=== PATIENT | female | born 1980 | race Caucasian/White ===

== ENCOUNTER → 2019-11-25 09:06 | Outpatient (CLI) | payer BC, SELFPAY ==
[2019-11-25 10:08] LABS: Hematocrit 41.8 % (36-46); Mean Corpuscular HGB Conc 33.5 % (30-36); Mean Corpuscular Hemoglobin 29.2 PG (26-34); Platelet Count 320 X10^3/uL (150-400); Red Blood Cell Count 4.81 X10^6/uL (4.0-5.2)
[2019-11-25 10:17] LABS: Alanine Aminotransferase 17 IU/L (<35); Albumin 4.7 g/dL (3.5-5.0); Albumin Globulin Ratio 1.5 (1.0-2.8); Alkaline Phosphatase 39 U/L (38-126); Aspartate Aminotransferase 19 IU/L (14-36); BUN Creatinine Ratio 21.3 (6-22); Bilirubin Total 0.4 mg/dL (0.2-1.3); Blood Urea Nitrogen 17 mg/dL (7-17); Calcium 9.5 mg/dL (8.4-10.2); Carbon Dioxide 27 mmol/L (22-32); Chloride 102 mmol/L (98-107); Cholesterol 157 mg/dL (140-199); Estimated Glomerular Filt Rate > 60.0 mL/min (>60); Globulin 3.1 g/dL (1.7-4.1); Glucose 98 mg/dL (70-100); HDL Cholesterol 43 mg/dL (40-60); HEMOLYSIS < 15 (0-50); LDL Cholesterol Calculated 87 mg/dL (<100); Potassium 4.4 mmol/L (3.4-5.1); Sodium 140 mmol/L (137-145); Total Protein 7.8 g/dL (6.3-8.2); Triglycerides 134 mg/dL (35-150)
== END ==
PROVIDERS: PCP Nurse Practitioner Family; Referring Provider Nurse Practitioner Family; Visit Provider Nurse Practitioner Family
DX: Z00.00 Encounter for general adult medical examination without abnormal findings (principal); Z13.6 Encounter for screening for cardiovascular disorders
CPT/HCPCS: 36415; 80053; 80061; 85027

== ENCOUNTER → 2020-09-14 09:46 | Outpatient (CLI) | payer BC, SELFPAY ==
--- NOTE | 2020-09-14 09:51 | DI.RAD.S_ITS ---
PROCEDURE: XR HAND RT MIN 3V INDICATIONS: joint pain, back pain TECHNIQUE: 3 views of the hand(s) acquired. COMPARISON: None. FINDINGS: Bones: No fractures or dislocations. Carpal bones are normally aligned. No suspicious bony lesions. Soft tissues: No suspicious soft tissue calcifications. IMPRESSION: Negative examination. Dictated by: Moreno Landin M.D. on 09/14/2020 at 10:25 Approved by: Moreno Landin M.D. on 09/14/2020 at 10:27
--- NOTE | 2020-09-14 09:51 | DI.RAD.S_ITS ---
PROCEDURE: XR HAND LT MIN 3V INDICATIONS: joint pain, back pain TECHNIQUE: 3 views of the hand(s) acquired. COMPARISON: None. FINDINGS: Bones: No fractures or dislocations. Carpal bones are normally aligned. No suspicious bony lesions. Soft tissues: No suspicious soft tissue calcifications. IMPRESSION: Negative examination. Dictated by: Moreno Landin M.D. on 09/14/2020 at 10:27 Approved by: Moreno Landin M.D. on 09/14/2020 at 10:29
--- NOTE | 2020-09-14 09:51 | DI.RAD.S_ITS ---
PROCEDURE: XR LUMBAR SPINE 2-3V INDICATIONS: joint pain, back pain TECHNIQUE: 3 views of the lumbar spine were acquired. COMPARISON: None. FINDINGS: Bones: No fracture. Multilevel degenerative endplate sclerosis and spurring. Diffuse facet arthropathy. Trace retrolisthesis of L2 on L3. Moderate narrowing of the L4-L5 and L5-S1 disc spaces. Mild narrowing of the L3-L4 disc space. Mild dextrocurvature centered at L2-L3. Soft tissues: Overlying bowel gas pattern is normal. No suspicious soft tissue calcifications. IMPRESSION: Mild dextrocurvature Multilevel spondylosis and facet arthropathy as above. Dictated by: Moreno Landin M.D. on 09/14/2020 at 11:02 Approved by: Moreno Landin M.D. on 09/14/2020 at 11:03
[2020-09-14 11:07] LABS: Add Manual Diff / Slide Review NO; Basophils Absolute Auto 0 /uL (0-100); Basophils Percent Auto 0.8 % (0-2); Eosinophils Absolute Auto 100 /uL (0-450); Eosinophils Percent Auto 1.5 % (2-4); Hematocrit 40.2 % (36-46); Hemoglobin 13.3 g/dL (12.0-16.0); Lymphocytes Absolute Auto 1900 /uL (1100-4500); Lymphocytes Percent Auto 34.4 % (25-40); Mean Corpuscular HGB Conc 33.2 % (30-36); Mean Corpuscular Hemoglobin 29.2 PG (26-34); Mean Corpuscular Volume 88.1 fL (80-100); Monocytes Absolute Auto 400 /uL (0-900); Monocytes Percent Auto 7.5 % (3-14); Neutrophils Absolute Auto 3100 /uL (1500-7000); Neutrophils Percent Auto 55.8 % (50-75); Platelet Count 328 X10^3/uL (150-400); Red Blood Cell Count 4.56 X10^6/uL (4.0-5.2); Red Cell Distribution Width 12.8 % (11.6-14.8); White Blood Cell Count 5.5 X10^3/uL (4.5-11.0)
[2020-09-14 11:10] LABS: Alanine Aminotransferase 15 IU/L (<35); Albumin 4.4 g/dL (3.5-5.0); Albumin Globulin Ratio 1.6 (1.0-2.8); Alkaline Phosphatase 39 U/L (38-126); Aspartate Aminotransferase 18 IU/L (14-36); Bilirubin Total 0.4 mg/dL (0.2-1.3); Blood Urea Nitrogen 15 mg/dL (7-17); Calcium 9.1 mg/dL (8.4-10.2); Carbon Dioxide 30 mmol/L (22-32); Chloride 104 mmol/L (98-107); Estimated Glomerular Filt Rate > 60.0 mL/min (>60); Globulin 2.8 g/dL (1.7-4.1); Glucose 102 mg/dL (70-100); HEMOLYSIS < 15 (0-50); Sodium 137 mmol/L (137-145); Total Protein 7.2 g/dL (6.3-8.2)
[2020-09-14 11:12] LABS: C-Reactive Protein Quant < 0.5 mg/dL (<1.0)
[2020-09-14 11:14] LABS: Rheumatoid Factor < 8.6 IU/mL (<12.0)
[2020-09-14 11:45] LABS: Erythrocyte Sedimentation Rate 3 MM/HR (0-20)
[2020-09-15 18:40] LABS: ANA Screen, IFA Negative (.)
[2020-09-17 21:36] LABS: CCP Antibodies IgG/IgA 5 units (0-19)
== END ==
PROVIDERS: PCP Family Medicine; Referring Provider Family Medicine; Visit Provider Family Medicine
DX: G89.29 Other chronic pain (principal); M25.541 Pain in joints of right hand; M25.542 Pain in joints of left hand; M54.5 Low back pain; Z83.2 Family history of diseases of the blood and blood-forming organs and certain disorders involving the immune mechanism
CPT/HCPCS: 36415; 72100; 73130; 80053; 85025; 85651; 86038; 86140; 86200; 86430

== ENCOUNTER → 2020-09-21 11:33 | Outpatient (CLI) | payer BC, SELFPAY ==
--- NOTE | 2020-09-21 11:36 | DI.RAD.S_ITS ---
PROCEDURE: XR CERVICAL SPINE 2V OR 3V INDICATIONS: neck pain TECHNIQUE: 3 view(s) of the cervical spine were acquired. COMPARISON: None. FINDINGS: Bones: No fracture. Straightening of the normal lordotic curvature. Mild to moderate narrowing of the C5-C6 disc space. Multilevel degenerative endplate sclerosis and spurring. Diffuse facet arthropathy. Soft tissues: No prevertebral soft tissue swelling. IMPRESSION: Straightening of the normal lordotic curvature. Mild to moderate C5-C6 disc degeneration. Dictated by: Moreno Landin M.D. on 09/21/2020 at 13:00 Approved by: Moreno Landin M.D. on 09/21/2020 at 13:02
== END ==
PROVIDERS: PCP Family Medicine; Referring Provider Registered Nurse; Visit Provider Registered Nurse
DX: M50.322 Other cervical disc degeneration at C5-C6 level (principal); M47.812 Spondylosis without myelopathy or radiculopathy, cervical region
CPT/HCPCS: 72040

== ENCOUNTER → 2020-09-22 12:45 | Outpatient (CLI) | payer BC, SELFPAY ==
--- NOTE | 2020-09-22 12:47 | DI.MG.S_ITS ---
BILATERAL DIGITAL DIAGNOSTIC MAMMOGRAM 3D/2D: 09/22/2020 CLINICAL: Baseline exam. Bilateral breast pain. No prior exams were available for comparison. The tissue of both breasts is heterogeneously dense. This may lower the sensitivity of mammography. There is an oval equal density focal asymmetry with an indistinct margin in the right breast at 5 o'clock anterior depth. This correlates as palpated. No other significant masses, calcifications, or other findings are seen in either breast. IMPRESSION: INCOMPLETE: NEEDS ADDITIONAL IMAGING EVALUATION The oval equal density focal asymmetry in the right breast is indeterminate. An ultrasound is recommended. There is no abnormality seen in the right axilla to correspond with the palpable abnormality in the right axilla, however, ultrasound is recommended. This exam was interpreted at Station ID: [id number]. NOTE: For mammograms, a report in lay terms will be sent to the patient. Approximately 15% of breast malignancies will not be visualized mammographically. In the management of a palpable breast mass, a negative mammogram must not discourage biopsy of a clinically suspicious lesion. Electronically Signed By: Micah farias/anton:09/22/2020 14:35:47 ACR BI-RADS Category 0: Incomplete [id number]
--- NOTE | 2020-09-22 12:47 | DI.US.S_ITS ---
LIMITED ULTRASOUND OF RIGHT BREAST AND AXILLA: 09/22/2020 CLINICAL: Palpable right breast lump. Comparison is made to exam dated: 09/22/2020 [facility]. Color flow and real-time ultrasound of the right breast 5-6 o'clock, and axilla regions were performed on the areas of interest. There is a 0.9 cm x 0.6 cm x 0.4 cm oval mass with an indistinct and circumscribed margin in the right breast at 5 o'clock in the retroareolar region 2 cm from the nipple. This oval mass is hypoechoic with a well-defined boundary. This correlates as palpated and with mammography findings. Color flow imaging demonstrates that there is no vascularity present. There also is a 0.4 cm x 0.3 cm x 0.4 cm oval mass with an indistinct and circumscribed margin in the right breast at 9 o'clock middle depth. This oval mass is hypoechoic. This correlates as palpated. Color flow imaging demonstrates that there is no vascularity present. No significant abnormalities were seen sonographically in the right axilla. No enlarged lymph nodes in the right axilla. IMPRESSION: SUSPICIOUS OF MALIGNANCY The 0.9 cm x 0.6 cm x 0.4 cm oval mass in the right breast at 5 o'clock in the retroareolar region is suspicious of malignancy. An ultrasound guided biopsy is recommended. The 0.4 cm x 0.3 cm x 0.4 cm oval mass in the right breast at 9 o'clock middle depth is suspicious of malignancy. An ultrasound guided biopsy is recommended. There is no abnormality seen in the right axilla to correspond with the palpable abnormality in the right axilla, however, clinical followup is recommended. The findings were discussed with and the results were reviewed with the patient at the conclusion of the study by Dr. Anglin. This exam was interpreted at Station ID: [id number]. Electronically Signed By: Micah farias/:09/22/2020 14:44:54 letter sent: Biopsy Required Ultrasound BI-RADS: 4 Suspicious for malignancy
[2020-09-22 14:22] LABS: Free T4, Direct Thyroxine 1.26 ng/dL (0.78-2.19)
[2020-09-22 14:41] LABS: Thyroid Stimulating Hormone 0.497 uIU/mL (0.47-4.68)
== END ==
PROVIDERS: Registered Nurse; PCP Family Medicine; Referring Provider Family Medicine; Visit Provider Family Medicine
DX: R92.8 Other abnormal and inconclusive findings on diagnostic imaging of breast (principal); N63.14 Unspecified lump in the right breast, lower inner quadrant; N63.15 Unspecified lump in the right breast, overlapping quadrants; N64.4 Mastodynia; N60.01 Solitary cyst of right breast; N60.02 Solitary cyst of left breast; R20.0 Anesthesia of skin; R20.2 Paresthesia of skin
CPT/HCPCS: 36415; 76642; 77066; 84439; 84443; G0279

== ENCOUNTER → 2020-09-25 12:35 | Outpatient (CLI) | payer BC, SELFPAY ==
--- NOTE | 2020-09-25 | DI.MG.S_ITS ---
UNILATERAL RIGHT DIGITAL DIAGNOSTIC MAMMOGRAM POST-EXCISIONAL BIOPSY: 09/25/2020 CLINICAL: Abnormal mammogram. Comparison is made to exam dated: 09/22/2020 [facility]. The tissue of right breast is heterogeneously dense. This may lower the sensitivity of mammography. There is a marker clip in the appropriate position in the right breast at 6 o'clock middle depth. This marker clip placement is at the biopsy site. There also is a marker clip in the appropriate position in the right breast at 9 o'clock middle depth. This marker clip placement is at the biopsy site. IMPRESSION: POST PROCEDURE MAMMOGRAM FOR MARKER PLACEMENT There was a successful marker clip placement in the right breast at 6 o'clock middle depth. There was a successful marker clip placement in the right breast at 9 o'clock middle depth. This exam was interpreted at Station ID: [id number]. NOTE: For mammograms, a report in lay terms will be sent to the patient. Approximately 15% of breast malignancies will not be visualized mammographically. In the management of a palpable breast mass, a negative mammogram must not discourage biopsy of a clinically suspicious lesion. Electronically Signed By: Moreno rodríguez/:09/25/2020 15:48:57 ACR BI-RADS Category Post-procedure mammogram for marker placement
--- NOTE | 2020-09-25 | PATH_ITS ---
[facility] Accession Number: [id number] . 01 Material submitted: . PART A: breast - RIGHT BREAST MASS 5:30 PART B: breast - RIGHT BREAST MASS 9:00 4CMFN . 02 Diagnosis: A. Right Breast, Mass 5:30, Core Needle Biopsies: Fibroepithelial lesion and adenosis. Negative for atypical hyperplasia, in situ, or invasive carcinoma. . B. Right Breast, Mass 9:00 4 CM FN, Core Needle Biopsies: Benign breast tissue and small fragment of lymph node. Negative for atypical hyperplasia, in situ, or invasive carcinoma. [facility] 09/30/2020 1715 Local . 02 Electronically signed: . Malina Stewart MD, Pathologist NPI- [id number] . 01 Gross description: . A. Received in formalin and labeled with R breast mass are four pieces of tesfaye adipose tissue, ranging in size from 1.0 x 0.5 x 0.3 cm to 0.9 x 0.9 x 0.2 cm. All four pieces are entirely submitted in cassette A1. B. Received in formalin and labeled with R breast mass are two pieces of tesfaye adipose and hemorrhagic tissue, measuring 1.2 x 0.3 x 0.3 cm to 1.6 x 0.7 x 0.3 cm. Both pieces are entirely submitted in cassette B1. Collection date and time is listed as 09/25/2020 at 1445 PM for a total fixation time after processing as approximately 2100 hours. ([id number]) /[facility] 09/30/2020 1715 Local . 02 Pathologist provided ICD-10: N63.10 . 02 CPT . 656117, [id number] Performed at: [address] [id number] MD Micah Ferguson MD Phone: [phone] Performed at: 02 [facility] [id number] [place] [id number] MD Malina Stewart MD Phone: [phone]
--- NOTE | 2020-09-25 12:36 | DI.US.S_ITS ---
MULTIPLE ULTRASOUND GUIDED BIOPSIES RIGHT BREAST USING VACUUM DEVICE WITH MARKING DEVICES INSERTED: 09/25/2020 CLINICAL: Two right breast masses 5:30 and 9:00. PATIENT CONSENT: Risks (minor bleeding, infection, vasovagal reaction and repeat procedure), benefits and alternatives were explained to the patient and written informed consent was obtained. Correlation is made to exams dated: [facility]2020 [facility] An [facility] guided biopsy using real-time ultrasound was performed for the mass located in the right breast at 6 o'clock posterior depth. The skin was prepped in the usual manner. Local anesthetic was administered to the access site. A small incision was made in the breast. The abnormality was approached from the lateral aspect. A biopsy needle was placed adjacent to the abnormality under ultrasound guidance. Once the needle was documented to be in the correct location, four specimens were obtained using the Mammotome biopsy system. The patient received additional local anesthetic during the procedure. A clip was inserted into the biopsy cavity. The specimens were sent to the laboratory for pathological analysis. A second ultrasound guided biopsy using real-time ultrasound was performed for the mass located in the right breast at 9 o'clock posterior depth. The skin was prepped in the usual manner. Local anesthetic was administered to the access site. A small incision was made in the breast. The abnormality was approached from the lateral aspect. A biopsy needle was placed adjacent to the abnormality under ultrasound guidance. Once the needle was documented to be in the correct location, three specimens were obtained using the Mammotome biopsy system. The patient received additional local anesthetic during the procedure. A clip was inserted into the biopsy cavity. The specimens were sent to the laboratory for pathological analysis. IMPRESSION: ULTRASOUND GUIDED BIOPSY BENIGN Ultrasound guided biopsy of the mass in the right breast at 6 o'clock posterior depth was successful. Pathology indicates benign lymph node (LN). Pathology results are concordant with imaging findings. Ultrasound guided biopsy of the mass in the right breast at 9 o'clock posterior depth was successful. 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 Pathology results are concordant with imaging findings. A follow-up ultrasound in 6 months is recommended to demonstrate stability. This exam was interpreted at Station ID: [id number]. Moreno rodríguez,acr/:10/02/2020 12:32:37
== END ==
PROVIDERS: PCP Family Medicine; Referring Provider Family Medicine; Visit Provider Family Medicine
DX: N60.21 Fibroadenosis of right breast (principal); D24.1 Benign neoplasm of right breast
CPT/HCPCS: 19083; 19084; 77065

== ENCOUNTER → 2020-10-14 09:35 | Outpatient (CLI) | payer BC, SELFPAY ==
--- NOTE | 2020-10-14 | DI.MRI.S_ITS ---
PROCEDURE: MR CERVICAL SPINE WO CON INDICATIONS: Cervicalgia TECHNIQUE: Noncontrast sagittal T1 spin echo and T2 fast spin echo, sagittal STIR, foraminal oblique sagittal T2 fast spin echo, and axial gradient echo or T2 fast spin echo through the cervical spine. COMPARISON: None. FINDINGS: Image quality: Excellent. Alignment and Curvature: There is normal bony alignment. Bone Marrow: Marrow demonstrates normal overall signal. Spinal Cord: Visualized spinal cord has normal size and signal. No cerebellar tonsillar herniation. Paraspinous Soft Tissues: No paravertebral masses. Prevertebral soft tissues are normal in thickness. C2-C3: Right facet hypertrophy. No canal stenosis or foraminal stenosis. C3-C4: Mild right facet hypertrophy. No canal stenosis or foraminal stenosis. C4-C5: No canal stenosis or foraminal stenosis. C5-C6: Mild central posterior disc protrusion minimally indenting on the ventral cord without canal stenosis. No significant foraminal stenosis. C6-C7: Minimal disc bulge. No canal stenosis or foraminal stenosis. C7-T1: No canal stenosis or foraminal stenosis. IMPRESSION: 1. At C5-C6, there is a mild central posterior disc protrusion minimally indenting on the ventral cord without canal stenosis. 2. Right facet hypertrophy at C2-C3 and C3-C4. Dictated by: Ash Mujica M.D. on 10/14/2020 at 11:08 Approved by: Ash Mujica M.D. on 10/14/2020 at 11:15
== END ==
PROVIDERS: PCP Family Medicine; Referring Provider Physical Medicine & Rehabilitation Pain Medicine; Visit Provider Physical Medicine & Rehabilitation Pain Medicine
DX: M48.02 Spinal stenosis, cervical region (principal); M50.222 Other cervical disc displacement at C5-C6 level
CPT/HCPCS: 72141

== ENCOUNTER → 2020-12-24 09:53 | Outpatient (CLI) | payer BC, SELFPAY ==
--- NOTE | 2020-12-24 09:55 | DI.RAD.S_ITS ---
PROCEDURE: XR FOOT LT MIN 3V INDICATIONS: bump of left foot TECHNIQUE: 3 views of the foot were acquired. COMPARISON: None. FINDINGS: Bones: No fractures or dislocations. No suspicious bony lesions. Soft tissues: No tibiotalar joint effusion. Achilles tendon appears normal. IMPRESSION: Left foot without acute radiographic abnormalities. No osseous or soft tissue abnormalities noted over the patient directed area of concern seen at the level of the lateral, anterior calcaneus. If there are persistent symptoms or clinical suspicion for pathology, then repeat radiographs or advanced imaging (CT, MRI or bone scan) may be considered for further evaluation. Dictated by: Jovon Chavarria M.D. on 12/24/2020 at 12:21 Approved by: Jovon Chavarria M.D. on 12/24/2020 at 12:22
== END ==
PROVIDERS: PCP Family Medicine; Referring Provider Registered Nurse; Visit Provider Registered Nurse
DX: M89.8X7 Other specified disorders of bone, ankle and foot (principal)
CPT/HCPCS: 73630

== ENCOUNTER → 2021-03-19 12:37 | Outpatient (CLI) | payer BC, SELFPAY ==
--- NOTE | 2021-03-19 | DI.MG.S_ITS ---
BILATERAL DIGITAL DIAGNOSTIC MAMMOGRAM 3D/2D SHORT-TERM FOLLOW-UP: 03/19/2021 CLINICAL: Short term follow up for bilateral breasts. Comparison is made to exams dated: 03/19/2021 ultrasound, 09/25/2020 mammogram, 09/22/2020 mammogram, 09/25/2020 ultrasound biopsy, and 09/22/2020 ultrasound - [facility]. The tissue of both breasts is heterogeneously dense. This may lower the sensitivity of mammography. There are biopsy clips in the right breast at 6 and 9 o'clock. No significant masses, calcifications, or other findings are seen in either breast. IMPRESSION: INCOMPLETE: NEEDS ADDITIONAL IMAGING EVALUATION Ultrasound is recommended for follow up of biopsied lesions in the right breast. There is no abnormality seen in the right axilla to correspond with the palpable abnormality in the right axilla, however, ultrasound is recommended. This exam was interpreted at Station ID: [id number]. NOTE: For mammograms, a report in lay terms will be sent to the patient. Approximately 15% of breast malignancies will not be visualized mammographically. In the management of a palpable breast mass, a negative mammogram must not discourage biopsy of a clinically suspicious lesion. Electronically Signed By: Robbie vogt/anton:03/19/2021 15:03:11 ACR BI-RADS Category 0: Incomplete [id number]
--- NOTE | 2021-03-19 12:38 | DI.US.S_ITS ---
LIMITED ULTRASOUND OF RIGHT BREAST AND AXILLA: 03/19/2021 CLINICAL: 6 month right breast ultrasound following biopsy 2 masses. Comparison is made to exams dated: 09/25/2020 ultrasound biopsy, 09/25/2020 mammogram, 09/22/2020 ultrasound, 09/22/2020 mammogram, and 03/19/2021 mammogram - Located [facility]. Color flow ultrasound of the right breast axilla was performed. Jones scale images of the real-time examination were reviewed. There is a benign 0.7 cm x 0.8 cm x 0.3 cm oval mass in the right breast at 6 o'clock anterior depth 2 cm from the nipple. This oval mass is hypoechoic. This correlates with the previous biopsy. There also is a benign 0.3 cm x 0.3 cm x 0.2 cm oval mass in the right breast at 9 o'clock middle depth 2 cm from the nipple. This oval mass is hypoechoic. This abnormality is decreased in size and correlates with the previous biopsy. Additionally, there is a possible benign 0.9 cm x 0.8 cm oval lipoma in the right axilla. This oval lipoma is isoechoic. This correlates as palpated. Color flow imaging demonstrates that there is no vascularity present. IMPRESSION: BENIGN There is no sonographic evidence of malignancy. The 0.7 cm x 0.8 cm x 0.3 cm oval mass in the right breast at 6 o'clock anterior depth is benign. The 0.3 cm x 0.3 cm x 0.2 cm oval mass in the right breast at 9 o'clock middle depth is benign. The possible 0.9 cm x 0.8 cm oval lipoma in the right axilla has a differential diagnosis of a fat lobule or a lipoma and is benign. A 1 year screening mammogram is recommended. This exam was interpreted at Station ID: [id number]. Electronically Signed By: Robbie vogt/anton:03/19/2021 15:09:55 letter sent: Normal Exam Ultrasound BI-RADS: 2 Benign
--- NOTE | 2021-03-19 13:26 | DI.MRI.S_ITS ---
PROCEDURE: MR LUMBAR SPINE WO CON INDICATIONS: back pain with paresthesia symptoms TECHNIQUE: Noncontrast sagittal T1 spin echo and T2 fast echo, sagittal STIR, axial T1 and T2 fast spin echo through the lumbar spine. In cases with scoliosis, additional coronal T2 fast spin echo may be performed. COMPARISON: [facility], CR, XR LUMBAR SPINE 2-3V, 09/14/2020, 9:57. FINDINGS: Image quality: Excellent. Alignment and Curvature: Trace degenerative anterolisthesis of L5 on S1. Bone Marrow: Marrow is of normal overall signal. No acute vertebral body compression fractures. Spinal Cord: Conus medullaris terminates at the T12-L1 level. Visualized cord demonstrates normal signal and size. Paraspinous Soft Tissues: No paravertebral masses. T12-L1: No canal stenosis or foraminal stenosis. L1-L2: No canal stenosis or foraminal stenosis. L2-L3: Posterior annulus tear plus minimal disc bulge. No canal stenosis or foraminal stenosis. L3-L4: No canal stenosis or foraminal stenosis. L4-L5: Minimal disc bulge. Facet hypertrophy. Mild canal stenosis. Mild bilateral foraminal stenosis. L5-S1: Severe disc height loss. Mild posterior disc bulge. No canal stenosis. Mild facet hypertrophy. Mild left foraminal stenosis. IMPRESSION: 1. Mild diffuse degenerative change. 2. There is a posterior annulus tear plus minimal disc bulge without canal stenosis at L2-L3. 3. There is mild canal stenosis at L4-L5. Dictated by: Ash Mujica M.D. on 03/19/2021 at 14:42 Approved by: Ash Mujica M.D. on 03/19/2021 at 14:46
== END ==
PROVIDERS: PCP Family Medicine; Referring Provider Surgery; Visit Provider Surgery
DX: N63.0 Unspecified lump in unspecified breast (principal); M54.5 Low back pain; R20.2 Paresthesia of skin
CPT/HCPCS: 72148; 76642; 77066; G0279

== ENCOUNTER → 2021-08-25 08:49 | Outpatient (CLI) | payer BC, SELFPAY ==
[2021-08-25 11:51] LABS: COVID19 -Nasal RAPID Negative (Negative)
== END ==
PROVIDERS: PCP Family Medicine; Visit Provider Physician Assistant
DX: Z20.822 Contact with and (suspected) exposure to COVID-19 (principal); R05.9 Cough, unspecified; R10.9 Unspecified abdominal pain
CPT/HCPCS: 87635

== ENCOUNTER → 2021-09-28 11:19 | Outpatient (CLI) | payer BC, SELFPAY ==
[2021-09-28 12:35] LABS: Erythrocyte Sedimentation Rate 3 MM/HR (0-20)
[2021-09-28 12:50] LABS: Free T3, Triiodothyronine Free 4.73 pg/mL (2.77-5.27)
[2021-09-28 13:25] LABS: Vitamin B12 556 pg/mL (239-931)
[2021-09-29 17:41] LABS: ANA Screen, IFA Negative (.)
[2021-09-30 14:41] LABS: M-Spike % Not Observed % (Not Observed); Urine Total Protein <4.0 mg/dL (Not Estab.)
[2021-09-30 15:46] LABS: Albumin 4.4 g/dL (2.9-4.4); Alpha-1-Globulin 0.2 g/dL (0.0-0.4); Alpha-2-Globulin 0.5 g/dL (0.4-1.0); Gamma Globulin 1.2 g/dL (0.4-1.8); Globulin Total 2.9 g/dL (2.2-3.9); Protein, Total 7.3 g/dL (6.0-8.5)
[2021-10-10 08:10] LABS: Vitamin B6 50.2 ug/L (2.0-32.8)
== END ==
PROVIDERS: PCP Family Medicine; Referring Provider Family Medicine; Visit Provider Family Medicine
DX: G62.9 Polyneuropathy, unspecified (principal); E53.8 Deficiency of other specified B group vitamins
CPT/HCPCS: 36415; 82607; 84155; 84156; 84165; 84166; 84207; 84481; 85651; 86038

== ENCOUNTER 2021-12-09 14:30 | Outpatient (RCR) | payer BC, SELFPAY ==
--- NOTE | 2021-11-12 12:00 | PT.OPPOC ---
Physical, Occupational & Speech Therapy At [facility] Current Diagnoses Tension-type headache, unspecified, not intractable (11/12/21) Polyneuropathy, unspecified (11/12/21) Other chronic pain (11/12/21) Cervicalgia (11/12/21) Pain in thoracic spine (11/12/21) Pain in right foot (11/12/21) Pain in left foot (11/12/21) Visit Care Team Role Provider Type Alin Vasquez DO Attending Provider Physician Family Provider Primary Care Provider Referring Provider Specialty: Family Practice Address: [address] [place] [address], [facility] Email: Plan Of Care PT-OP-T Assessment and Plan Start: 11/08/21 09:33 Freq: Status: Active Protocol: Document 11/12/21 11:15 AMB (Rec: 11/15/21 09:27 AMB [id number]) Physical Therapy Assessment Rehab Potential Rehabilitation Potential Fair Evaluation Complexity Number of Personal Factors/Comorbidities 1-2 Number of Body Systems Impaired 4 or More Clinical Presentation at Evaluation Evolving Impairments Impairments Functional Activities,Posture, ROM,Strength Goals Two Impairment Exercise Short Term Goal (STG) Aimee will be independent with a HEP. STG Duration 4 weeks Agile Scrum Coach Goal (LTG) Aimee will exercise for one hour without rebound increased tingling in her hands/feet. LTG Duration 8 weeks One Impairment Back pain Short Term Goal (STG) Aimee will sit for 1 hour without back pain or coccyx pain. STG Duration 4 weeks Agile Scrum Coach Goal (LTG) Aimee will bend forward with good spinal movement to parts picker items from the floor without pain. LTG Duration 8 weeks Assessment Summary Assessment Aimee attends physical therapy with a long history of spinal pain and bilateral tingling in her extremities. She has had extensive workup including cervical and lumbar MRI, EMG, blood work. She feels like the tingling is better when she exercises and then worse afterwards. She is exercising currently, but would like to work on her back pain, and other chronic issues, but is worried about her deductible. Her strength would be considered normal for a woman her age, but she feels subjectively she has lost strength in her hands. She was also concerned about coccyx pain with sitting which is worse after childbirth. She will benefit from physical therapy to establish a program for her spine and hands/feet. Physical Therapy Plan Frequency and Duration Frequency of Treatment 2x/Week Duration of Treatment 8 weeks Plan of Care Start Date 11/12/21 Plan of Care End Date 01/07/22 Therapeutic Interventions Therapeutic Interventions Joint Mobilizations,Manual Therapy,Neuromuscular Re- education,Self-Care/Home Management,Soft Tissue Mobilization,Therapeutic Activities,Therapeutic Exercises Modalities Cold Pack/Ice Massage,Electric Stimulation,Hot Packs, Ultrasound Next Visit Focus/Plan Next Note Type Treatment Note Next Visit Plan Establish HEP- Aimee hesitant to schedule many appointments due to high deductible Plan of Care Dates Plan of Care Start Date 11/12/21 Plan of Care End Date 01/07/22 Electronically Signed by: Reyna Duran, PT 11/15/21 0931 Please Sign and Return: I have reviewed this Plan of Care and certify that the skilled therapy services above are required to meet the patient?s needs. Physician Signature Date Printed Name and Credentials Clinical Instructor Signature Printed Name and Credentials
--- NOTE | 2021-11-12 12:00 | PT.OTN ---
Current Diagnoses Tension-type headache, unspecified, not intractable (11/12/21) Polyneuropathy, unspecified (11/12/21) Other chronic pain (11/12/21) Cervicalgia (11/12/21) Pain in thoracic spine (11/12/21) Pain in right foot (11/12/21) Pain in left foot (11/12/21) Physical Therapy Treatment Note PT-OP-A Visit Information Start: 11/08/21 09:33 Freq: Status: Active Protocol: Document 11/12/21 10:56 AMB (Rec: 11/12/21 10:56 AMB [id number]) Out-Patient Physical Therapy Visit Information Visit Information Visit Type Initial Evaluation Visit Start Time 11:15 Visit Stop Time 12:00 Total Visit Minutes 45 Visit Number 1 PT-OP-B Current Condition Start: 11/08/21 09:33 Freq: Status: Active Protocol: Document 11/12/21 11:10 AMB (Rec: 11/12/21 11:32 AMB [id number]) Current Condition History of Current Condition Onset Date Puberty Current Complaints Worsening tingling in bilateral hands/feet History of Current Condition Tingling is worse after activity. 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 Feels like covid vaccine and covid made it worse, but has had it for a long time. With exercise sx get better, but then after the exercise symptoms are worse for the rest of the day. Diagnosed with Raynauds in puberty. Does report history of whiplash from snowboarding. History of concussions. Migraine history botox helps. Hx coccyx pain, worst after childbirth x 3 vaginal deliveries. Treatment Goals Patient/Caregiver Goals low back and neck exercises, and foot and hands Current Functional Impairments (Reported) Functional Limitations- ADL's Limited sitting due to coccyx pain Personal Factors Other Personal Factors That May Effect High deductible Therapy/Recovery PT-OP-C Subjective Start: 11/08/21 09:33 Freq: Status: Active Protocol: Document 11/12/21 11:15 AMB (Rec: 11/12/21 16:11 AMB [id number]) OP-PT Subjective Patient Comments Patient Comments 1/10 foot and hand pain, 4/10 back pain, 3/10 neck pain Patient Questionnaires Neck Disability Index NDI Score 24 Neck Disability Index Impairment 20 to 39% Impaired (Score 10- 19) Oswestry Low Back Index Oswestry Score 18 Oswestry Impairment 1 to 19% Impaired (Score 1-19) Quick Dash- Upper Extremity Quick Dash UE Score 11 Quick Dash UE Impairment 1 to 19% Impaired (Score 1-19) PT-OP-J Posture/Palpation/Skin Start: 11/08/21 09:33 Freq: Status: Active Protocol: Document 11/12/21 11:15 AMB (Rec: 11/15/21 08:48 AMB [id number]) Posture Evaluation Comments Posture Comments Forward head, increased lumbar lordosis PT-OP-K Range of Motion Start: 11/08/21 09:33 Freq: Status: Active Protocol: Document 11/12/21 11:15 AMB (Rec: 11/15/21 08:48 AMB [id number]) Cervical Spine Range of Motion Cervical Spine Active Degrees Testing Position Sitting Flexion 50 Extension 55 Rotation Left 73 Rotation Right 70 Lateral Flexion Left 30 Lateral Flexion Right 35 Lumbar Spine Range of Motion Lumbar Spine Active Percentage Comments hinges at hips and keeps lordotic curve throughout forward bend PT-OP-M Strength Start: 11/08/21 09:33 Freq: Status: Active Protocol: Document 11/12/21 11:15 AMB (Rec: 11/15/21 08:48 AMB [id number]) Elbow/Forearm Strength Elbow and Forearm Manual Muscle Testing Right Flexion (C6) 5 Normal Extension (C7) 5 Normal Left Flexion (C6) 5 Normal Extension (C7) 5 Normal Wrist Strength Wrist Manual Muscle Testing Right Flexion (C7) 5 Normal Extension (C6) 4+ Good+ Left Flexion (C7) 5 Normal Extension (C6) 4+ Good+ Hand Customer Service Consultant/Pinch Strength Hand Dominance Hand Dominance Right Hand Strength Right Customer Service Consultant (lbs) 60 Left Customer Service Consultant (lbs) 60 PT-OP-Q Treatments Start: 11/08/21 09:33 Freq: Status: Active Protocol: Document 11/12/21 11:15 AMB (Rec: 11/15/21 08:48 AMB [id number]) Therapeutic Exercises Other Exercises 1 Other Exercise Name lito pose Comments focus on lumbar rounding PT-OP-T Assessment and Plan Start: 11/08/21 09:33 Freq: Status: Active Protocol: Document 11/12/21 11:15 AMB (Rec: 11/15/21 09:27 AMB [id number]) Physical Therapy Assessment Rehab Potential Rehabilitation Potential Fair Evaluation Complexity Number of Personal Factors/Comorbidities 1-2 Number of Body Systems Impaired 4 or More Clinical Presentation at Evaluation Evolving Impairments Impairments Functional Activities,Posture, ROM,Strength Goals Two Impairment Exercise Short Term Goal (STG) Aimee will be independent with a HEP. STG Duration 4 weeks Yarder Operator Goal (LTG) Aimee will exercise for one hour without rebound increased tingling in her hands/feet. LTG Duration 8 weeks One Impairment Back pain Short Term Goal (STG) Aimee will sit for 1 hour without back pain or coccyx pain. STG Duration 4 weeks Senior Living Goal (LTG) Aimee will bend forward with good spinal movement to chart picker items from the floor without pain. LTG Duration 8 weeks Assessment Summary Assessment Aimee attends physical therapy with a long history of spinal pain and bilateral tingling in her extremities. She has had extensive workup including cervical and lumbar MRI, EMG, blood work. She feels like the tingling is better when she exercises and then worse afterwards. She is exercising currently, but would like to work on her back pain, and other chronic issues, but is worried about her deductible. Her strength would be considered normal for a woman her age, but she feels subjectively she has lost strength in her hands. She was also concerned about coccyx pain with sitting which is worse after childbirth. She will benefit from physical therapy to establish a program for her spine and hands/feet. Physical Therapy Plan Frequency and Duration Frequency of Treatment 2x/Week Duration of Treatment 8 weeks Plan of Care Start Date 11/12/21 Plan of Care End Date 01/07/22 Therapeutic Interventions Therapeutic Interventions Joint Mobilizations,Manual Therapy,Neuromuscular Re- education,Self-Care/Home Management,Soft Tissue Mobilization,Therapeutic Activities,Therapeutic Exercises Modalities Cold Pack/Ice Massage,Electric Stimulation,Hot Packs, Ultrasound Next Visit Focus/Plan Next Note Type Treatment Note Next Visit Plan Establish HEP- Aimee hesitant to schedule many appointments due to high deductible
--- NOTE | 2021-11-18 15:32 | PT.OTN ---
Current Diagnoses Tension-type headache, unspecified, not intractable (11/18/21) Polyneuropathy, unspecified (11/18/21) Other chronic pain (11/18/21) Cervicalgia (11/18/21) Pain in thoracic spine (11/18/21) Pain in right foot (11/18/21) Pain in left foot (11/18/21) Physical Therapy Treatment Note PT-OP-A Visit Information Start: 11/08/21 09:33 Freq: Status: Active Protocol: Document 11/18/21 14:30 AMB (Rec: 11/18/21 15:41 AMB [id number]) Out-Patient Physical Therapy Visit Information Visit Information Visit Type Treatment Note Visit Start Time 14:30 Visit Stop Time 15:15 Total Visit Minutes 45 Visit Number 2 PT-OP-B Current Condition Start: 11/08/21 09:33 Freq: Status: Active Protocol: Document 11/12/21 11:10 AMB (Rec: 11/12/21 11:32 AMB [id number]) Current Condition History of Current Condition Onset Date Puberty Current Complaints Worsening tingling in bilateral hands/feet History of Current Condition Tingling is worse after activity. 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 Feels like covid vaccine and covid made it worse, but has had it for a long time. With exercise sx get better, but then after the exercise symptoms are worse for the rest of the day. Diagnosed with Raynauds in puberty. Does report history of whiplash from snowboarding. History of concussions. Migraine history botox helps. Hx coccyx pain, worst after childbirth x 3 vaginal deliveries. Treatment Goals Patient/Caregiver Goals low back and neck exercises, and foot and hands Current Functional Impairments (Reported) Functional Limitations- ADL's Limited sitting due to coccyx pain Personal Factors Other Personal Factors That May Effect High deductible Therapy/Recovery PT-OP-C Subjective Start: 11/08/21 09:33 Freq: Status: Active Protocol: Document 11/18/21 14:30 AMB (Rec: 11/18/21 15:46 AMB [id number]) OP-PT Subjective Patient Comments Patient Comments Aimee is doing ok, about the same. Patient Reported Progress Same PT-OP-J Posture/Palpation/Skin Start: 11/08/21 09:33 Freq: Status: Active Protocol: Document 11/12/21 11:15 AMB (Rec: 11/15/21 08:48 AMB [id number]) Posture Evaluation Comments Posture Comments Forward head, increased lumbar lordosis PT-OP-K Range of Motion Start: 11/08/21 09:33 Freq: Status: Active Protocol: Document 11/12/21 11:15 AMB (Rec: 11/15/21 08:48 AMB [id number]) Cervical Spine Range of Motion Cervical Spine Active Degrees Testing Position Sitting Flexion 50 Extension 55 Rotation Left 73 Rotation Right 70 Lateral Flexion Left 30 Lateral Flexion Right 35 Lumbar Spine Range of Motion Lumbar Spine Active Percentage Comments hinges at hips and keeps lordotic curve throughout forward bend PT-OP-M Strength Start: 11/08/21 09:33 Freq: Status: Active Protocol: Document 11/12/21 11:15 AMB (Rec: 11/15/21 08:48 AMB [id number]) Elbow/Forearm Strength Elbow and Forearm Manual Muscle Testing Right Flexion (C6) 5 Normal Extension (C7) 5 Normal Left Flexion (C6) 5 Normal Extension (C7) 5 Normal Wrist Strength Wrist Manual Muscle Testing Right Flexion (C7) 5 Normal Extension (C6) 4+ Good+ Left Flexion (C7) 5 Normal Extension (C6) 4+ Good+ Hand Wall Man/Pinch Strength Hand Dominance Hand Dominance Right Hand Strength Right Wall Man (lbs) 60 Left Wall Man (lbs) 60 PT-OP-Q Treatments Start: 11/08/21 09:33 Freq: Status: Active Protocol: Document 11/18/21 14:30 AMB (Rec: 11/24/21 15:32 AMB [id number]) Therapeutic Exercises Supine Exercises chin tuck Reps/Minutes 5x10 Comments cues to lengthen back of neck Prone Exercises 1 Prone Exercise Name 55cm ball rows Reps/Minutes 2x10 Comments cues for posture Sitting Exercises arch lifts Sitting Exercise Name foot Reps/Minutes 10 Comments seated/standing tendon gliding Sitting Exercise Name hand Reps/Minutes 10 Other Exercises 2 Other Exercise Name bird dog Comments with focus on TA,breathing 1 Other Exercise Name lito pose Comments focus on lumbar rounding PT-OP-T Assessment and Plan Start: 11/08/21 09:33 Freq: Status: Active Protocol: Document 11/18/21 14:30 AMB (Rec: 11/18/21 15:46 AMB [id number]) Physical Therapy Assessment Assessment Summary Assessment Aimee was able to tolerate all exercises, worked on morning stiffness as well as posture exercises. Physical Therapy Plan Next Visit Focus/Plan Next Note Type Treatment Note Next Visit Plan Follow up on HEP: Chin tucks, T ball rows, bird dog, hand tendon glide, arch lifts
--- NOTE | 2021-12-09 15:40 | PT.OTN ---
Current Diagnoses Tension-type headache, unspecified, not intractable (12/09/21) Polyneuropathy, unspecified (12/09/21) Other chronic pain (12/09/21) Cervicalgia (12/09/21) Pain in thoracic spine (12/09/21) Pain in right foot (12/09/21) Pain in left foot (12/09/21) Physical Therapy Treatment Note PT-OP-A Visit Information Start: 11/08/21 09:33 Freq: Status: Active Protocol: Document 12/09/21 14:31 AMB (Rec: 12/09/21 15:39 AMB [id number]) Out-Patient Physical Therapy Visit Information Visit Information Visit Type Treatment Note Visit Start Time 14:30 Visit Stop Time 15:15 Total Visit Minutes 45 Visit Number 3 PT-OP-B Current Condition Start: 11/08/21 09:33 Freq: Status: Active Protocol: Document 11/12/21 11:10 AMB (Rec: 11/12/21 11:32 AMB [id number]) Current Condition History of Current Condition Onset Date Puberty Current Complaints Worsening tingling in bilateral hands/feet History of Current Condition Tingling is worse after activity. 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 Feels like covid vaccine and covid made it worse, but has had it for a long time. With exercise sx get better, but then after the exercise symptoms are worse for the rest of the day. Diagnosed with Raynauds in puberty. Does report history of whiplash from snowboarding. History of concussions. Migraine history botox helps. Hx coccyx pain, worst after childbirth x 3 vaginal deliveries. Treatment Goals Patient/Caregiver Goals low back and neck exercises, and foot and hands Current Functional Impairments (Reported) Functional Limitations- ADL's Limited sitting due to coccyx pain Personal Factors Other Personal Factors That May Effect High deductible Therapy/Recovery PT-OP-C Subjective Start: 11/08/21 09:33 Freq: Status: Active Protocol: Document 12/09/21 14:31 AMB (Rec: 12/09/21 15:39 AMB [id number]) OP-PT Subjective Patient Comments Patient Comments Has been working on the exercises Patient Reported Progress Same PT-OP-J Posture/Palpation/Skin Start: 11/08/21 09:33 Freq: Status: Active Protocol: Document 11/12/21 11:15 AMB (Rec: 11/15/21 08:48 AMB [id number]) Posture Evaluation Comments Posture Comments Forward head, increased lumbar lordosis PT-OP-K Range of Motion Start: 11/08/21 09:33 Freq: Status: Active Protocol: Document 11/12/21 11:15 AMB (Rec: 11/15/21 08:48 AMB [id number]) Cervical Spine Range of Motion Cervical Spine Active Degrees Testing Position Sitting Flexion 50 Extension 55 Rotation Left 73 Rotation Right 70 Lateral Flexion Left 30 Lateral Flexion Right 35 Lumbar Spine Range of Motion Lumbar Spine Active Percentage Comments hinges at hips and keeps lordotic curve throughout forward bend PT-OP-M Strength Start: 11/08/21 09:33 Freq: Status: Active Protocol: Document 11/12/21 11:15 AMB (Rec: 11/15/21 08:48 AMB [id number]) Elbow/Forearm Strength Elbow and Forearm Manual Muscle Testing Right Flexion (C6) 5 Normal Extension (C7) 5 Normal Left Flexion (C6) 5 Normal Extension (C7) 5 Normal Wrist Strength Wrist Manual Muscle Testing Right Flexion (C7) 5 Normal Extension (C6) 4+ Good+ Left Flexion (C7) 5 Normal Extension (C6) 4+ Good+ Hand Plate Mill Mill Hand/Pinch Strength Hand Dominance Hand Dominance Right Hand Strength Right Plate Mill Mill Hand (lbs) 60 Left Plate Mill Mill Hand (lbs) 60 PT-OP-Q Treatments Start: 11/08/21 09:33 Freq: Status: Active Protocol: Document 12/09/21 14:31 AMB (Rec: 12/09/21 15:39 AMB [id number]) Therapeutic Exercises Supine Exercises TA supine march Supine Exercise Name cues for TA Reps/Minutes 2x10 Comments wiht sheet Sitting Exercises t ball Sitting Exercise Name pelvic circles, TA march Reps/Minutes 10 ea tendon gliding Sitting Exercise Name hand Reps/Minutes 10 Other Exercises thread the needle Reps/Minutes 10 Comments HEP- cues to follow hand with neck 2 Other Exercise Name bird dog Comments HEP 1 Other Exercise Name lito pose Comments HEP PT-OP-T Assessment and Plan Start: 11/08/21 09:33 Freq: Status: Active Protocol: Document 12/09/21 14:31 AMB (Rec: 12/09/21 15:39 AMB [id number]) Physical Therapy Assessment Goals Two Impairment Exercise Short Term Goal (STG) Aimee will be independent with a HEP. STG Duration 4 weeks Manager Industrial Goal (LTG) Aimee will exercise for one hour without rebound increased tingling in her hands/feet. LTG Duration 8 weeks One Impairment Back pain Short Term Goal (STG) Aimee will sit for 1 hour without back pain or coccyx pain. STG Duration 4 weeks Half-Way Goal (LTG) Aimee will bend forward with good spinal movement to pickers material handlers items from the floor without pain. LTG Duration 8 weeks Assessment Summary Assessment Aimee was challenged by STACEY cavazos, did have small diastasis, but did like compression with sheet. Physical Therapy Plan Hold Physical Therapy Reason For Hold Pt needs to know how much PT is going to cost, will call us back after she gets some bills.
--- NOTE | 2022-03-01 10:52 | PT.OPDS ---
Current Diagnoses Tension-type headache, unspecified, not intractable (12/09/21) Polyneuropathy, unspecified (12/09/21) Other chronic pain (12/09/21) Cervicalgia (12/09/21) Pain in thoracic spine (12/09/21) Pain in right foot (12/09/21) Pain in left foot (12/09/21) Visit Care Team Role Provider Type Alin Vasquez DO Attending Provider Physician Family Provider Primary Care Provider Referring Provider Specialty: Family Practice Address: [address] [place] [address], [facility] Email: Visit Number Visit Number 3 Discharge Summary PT-OP-B Current Condition Start: 11/08/21 09:33 Freq: Status: Active Protocol: Document 11/12/21 11:10 AMB (Rec: 11/12/21 11:32 AMB [id number]) Current Condition History of Current Condition Onset Date Puberty Current Complaints Worsening tingling in bilateral hands/feet History of Current Condition Tingling is worse after activity. 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 Feels like covid vaccine and covid made it worse, but has had it for a long time. With exercise sx get better, but then after the exercise symptoms are worse for the rest of the day. Diagnosed with Raynauds in puberty. Does report history of whiplash from snowboarding. History of concussions. Migraine history botox helps. Hx coccyx pain, worst after childbirth x 3 vaginal deliveries. Treatment Goals Patient/Caregiver Goals low back and neck exercises, and foot and hands Current Functional Impairments (Reported) Functional Limitations- ADL's Limited sitting due to coccyx pain Personal Factors Other Personal Factors That May Effect High deductible Therapy/Recovery PT-OP-C Subjective Start: 11/08/21 09:33 Freq: Status: Active Protocol: Document 12/09/21 14:31 AMB (Rec: 12/09/21 15:39 AMB [id number]) OP-PT Subjective Patient Comments Patient Comments Has been working on the exercises Patient Reported Progress Same PT-OP-J Posture/Palpation/Skin Start: 11/08/21 09:33 Freq: Status: Active Protocol: Document 11/12/21 11:15 AMB (Rec: 11/15/21 08:48 AMB [id number]) Posture Evaluation Comments Posture Comments Forward head, increased lumbar lordosis PT-OP-K Range of Motion Start: 11/08/21 09:33 Freq: Status: Active Protocol: Document 11/12/21 11:15 AMB (Rec: 11/15/21 08:48 AMB [id number]) Cervical Spine Range of Motion Cervical Spine Active Degrees Testing Position Sitting Flexion 50 Extension 55 Rotation Left 73 Rotation Right 70 Lateral Flexion Left 30 Lateral Flexion Right 35 Lumbar Spine Range of Motion Lumbar Spine Active Percentage Comments hinges at hips and keeps lordotic curve throughout forward bend PT-OP-M Strength Start: 11/08/21 09:33 Freq: Status: Active Protocol: Document 11/12/21 11:15 AMB (Rec: 11/15/21 08:48 AMB [id number]) Elbow/Forearm Strength Elbow and Forearm Manual Muscle Testing Right Flexion (C6) 5 Normal Extension (C7) 5 Normal Left Flexion (C6) 5 Normal Extension (C7) 5 Normal Wrist Strength Wrist Manual Muscle Testing Right Flexion (C7) 5 Normal Extension (C6) 4+ Good+ Left Flexion (C7) 5 Normal Extension (C6) 4+ Good+ Hand Solar Project Engineer/Pinch Strength Hand Dominance Hand Dominance Right Hand Strength Right Solar Project Engineer (lbs) 60 Left Solar Project Engineer (lbs) 60 PT-OP-T Assessment and Plan Start: 11/08/21 09:33 Freq: Status: Active Protocol: Document 03/01/22 10:50 AMB (Rec: 03/01/22 10:52 AMB [id number]) Physical Therapy Assessment Goals Two Impairment Exercise Short Term Goal (STG) Aimee will be independent with a HEP. STG Duration 4 weeks Fiber Optic Assembly Worker Goal (LTG) Aimee will exercise for one hour without rebound increased tingling in her hands/feet. LTG Duration 8 weeks One Impairment Back pain Short Term Goal (STG) Aimee will sit for 1 hour without back pain or coccyx pain. STG Duration 4 weeks Fiber Optic Assembly Worker Goal (LTG) Aimee will bend forward with good spinal movement to cotton picking machine operator items from the floor without pain. LTG Duration 8 weeks Assessment Summary Assessment Aimee was last seen in PT in November, at that time she wanted to wait to see how much her PT bill would be.. This therapist called her once and she did not elect to schedule any more visits at that time, therefore she is now discharged, as it has been almost 3 months since she was seen in the clinic. Physical Therapy Plan Discharge Physical Therapy Discharge Reasons No Longer Attending PT
== END 2022-03-04 09:56 ==
LOC: PHYS 14:30
PROVIDERS: Family Provider Family Medicine; PCP Family Medicine; Referring Provider Family Medicine; Visit Provider Family Medicine
DX: G62.9 Polyneuropathy, unspecified (principal); G44.209 Tension-type headache, unspecified, not intractable; M54.2 Cervicalgia; G89.29 Other chronic pain; M54.6 Pain in thoracic spine; M79.671 Pain in right foot; M79.672 Pain in left foot
CPT/HCPCS: 97110; 97162

== ENCOUNTER 2022-11-15 01:15 | Emergency (ER) | payer BC, SELFPAY ==
[2022-11-15] VITALS (37 sets, daily range): BP systolic 94–136; BP diastolic 51–72; PULSE 64–88; RESP 11–46; TEMP 36.8; O2SAT 94–100; BMI 29.4
--- NOTE | 2022-11-15 01:29 | DI.RAD.S_ITS ---
PROCEDURE: XR CHEST 1V INDICATIONS: chest pain TECHNIQUE: One view of the chest was acquired. COMPARISON: None. FINDINGS: Surgical changes and devices: None. Lungs and pleura: Lungs are clear. No pleural effusions or pneumothorax. Mediastinum: Mediastinal contours appear normal. Heart size is normal. Bones and chest wall: No suspicious bony lesions. Overlying soft tissues appear unremarkable. IMPRESSION: 1. No acute cardiopulmonary disease. Dictated by: Micah Vanessa M.D. on 11/15/2022 at 2:02 Approved by: Micah Vanessa M.D. on 11/15/2022 at 2:02
[2022-11-15 01:45] LABS: Add Manual Diff / Slide Review NO; Basophils Absolute Auto 300 /uL (0-100); Basophils Percent Auto 2.3 % (0-2); Eosinophils Absolute Auto 200 /uL (0-450); Eosinophils Percent Auto 1.7 % (2-4); Hematocrit 42.4 % (36-46); Hemoglobin 13.7 g/dL (12.0-16.0); Lymphocytes Absolute Auto 2200 /uL (1100-4500); Lymphocytes Percent Auto 18.8 % (25-40); Mean Corpuscular HGB Conc 32.3 % (30-36); Mean Corpuscular Hemoglobin 28.7 PG (26-34); Mean Corpuscular Volume 88.8 fL (80-100); Monocytes Absolute Auto 700 /uL (0-900); Monocytes Percent Auto 5.7 % (3-14); Neutrophils Absolute Auto 8400 /uL (1500-7000); Neutrophils Percent Auto 71.5 % (50-75); Platelet Count 318 X10^3/uL (150-400); Prothrombin Time 11.4 SECONDS (10.1-12.7); Red Blood Cell Count 4.77 X10^6/uL (4.0-5.2); Red Cell Distribution Width 13.2 % (11.6-14.8); White Blood Cell Count 11.8 X10^3/uL (4.5-11.0)
[2022-11-15 01:48] LABS: PTT Partial Thromboplastin Tim 29 SECONDS (26-36)
[2022-11-15 01:50] LABS: Alanine Aminotransferase 21 IU/L (<35); Albumin 4.6 g/dL (3.5-5.0); Albumin Globulin Ratio 1.5 (1.0-2.8); Alkaline Phosphatase 58 U/L (38-126); Aspartate Aminotransferase 25 IU/L (14-36); BUN Creatinine Ratio 18.3 (6-22); Bilirubin Total 0.3 mg/dL (0.2-1.3); Blood Urea Nitrogen 15 mg/dL (7-17); Calcium 9.4 mg/dL (8.4-10.2); Carbon Dioxide 27 mmol/L (22-32); Chloride 101 mmol/L (98-107); Creatine Kinase 133 U/L (30-135); Estimated Glomerular Filt Rate > 60 mL/min (>60); Globulin 3.1 g/dL (1.7-4.1); Glucose 118 mg/dL (70-100); HEMOLYSIS < 15 (0-50); Lipase 61 U/L (23-300); Magnesium 2.3 mg/dL (1.6-2.3); Potassium 3.8 mmol/L (3.4-5.1); Sodium 139 mmol/L (137-145); Total Protein 7.7 g/dL (6.3-8.2)
[2022-11-15 02:03] LABS: Troponin I 0.697 ng/mL (0.01-0.034)
[2022-11-15 02:05] LABS: Creatine Kinase MB 9.64 ng/mL (<2.37)
[2022-11-15 02:06] LABS: CKMB % Relative Index 7.2 % (1.5-5.0)
[2022-11-15] MEDS: ASPIRIN 81 MG CHEW TAB 324 MG PO (02:10)
--- NOTE | 2022-11-15 02:14 | ED_ITS ---
HPI - Chest Pain <Tony Cesar - Last Filed: 11/16/22 01:33> General Chief Complaint: Chest Pain Stated Complaint: CHEST PAIN Time Seen by Provider: 11/15/22 01:32 Source: patient Mode of arrival: Ambulatory Limitations: no limitations History of Present Illness HPI narrative: 42-year-old female nonsmoker without significant chronic medical history presents for evaluation of severe, sharp and stabbing chest pain that radiated across her chest and down her arms as well as left jaw that started while at rest at about 10:00 p.m. tonight. She states that she had been in her normal clay of health and denies any recent shortness of breath, fatigue, dizziness, weakness or lightheadedness. She denies any exercise intolerance. She states that while experiencing this pain, which lasted about 1 hour she felt nauseated and lightheaded. She took a baby aspirin and attempted to relax, she does state that her symptoms had improved but then came back again a bit later at which point she came to see us. She is currently not experiencing any dizziness, weakness or lightheadedness. She is no chest pain, shortness of breath nor nausea, vomiting or diarrhea. She denies any history of the same. She is had no recent trauma, injury, travel, history of blood clot or known cancer. She denies any lower extremity pain or swelling. Related Data Home Medications Medication Instructions Recorded Confirmed cholecalciferol (vitamin D3) 10 10 mcg PO DAILY 01/12/21 03/04/22 mcg (400 unit) capsule multivitamin 1 tab PO DAILY 01/12/21 03/04/22 Previous Rx's Medication Instructions Recorded methylphenidate HCl 18 mg 18 mg PO DAILY #30 tabs 03/18/21 tablet,extended release 24 hr (Concerta) dextroamphetamine-amphetamine 5 mg 5 mg PO TID #90 tabs 04/06/21 tablet usgmcohvmv-tqfzmthzqpydu-qajokfdk 1 cap PO Q4-6H PRN pain #20 caps 09/03/21 50 mg-325 mg-40 mg capsule cyanocobalamin (vitamin B-12) 1,000 mcg IM QMONTH #3 mL 05/05/22 1,000 mcg/mL injection solution norgestimate 0.18 mg/0.215 mg/0.25 1 tab PO DAILY #84 tabs 05/05/22 mg-ethinyl estradiol 25 mcg tablet (Jbd-Wd-Sxoxfa) hydroxyzine HCl 10 mg tablet 10 mg PO TID PRN anxiety #90 tabs 06/21/22 Allergies Allergy/AdvReac Type Severity Reaction Status Date / Time Penicillins Allergy Intermediate systemic Verified 03/04/22 16:03 rash codeine AdvReac Mild bp drops Verified 03/04/22 16:03 Review of Systems <Tony Cesar DO - Last Filed: 11/16/22 01:33> Review of Systems Narrative: GENERAL: See HPI HEENT: Denies sinus pain, ear pain, sore throat, difficulty swallowing, dizziness. RESPIRATORY: Denies dyspnea, cough, wheezing, hemoptysis, sputum. CARDIOVASCULAR: See HPI GASTROINTESTINAL: See HPI : Denies dysuria, frequency, incontinence, hematuria, urinary retention. MUSCULOSKELETAL: denies weakness, joint pain, or bony pain SKIN: Denies rash, skin lesions, or other NEUROLOGIC: Denies weakness, headache, numbness, change in speech, confusion, seizures, incoordination. PSYCHIATRIC: No concerning psychosocial issues. 12 point review of systems is negative except for those stated above Patient History <Tony Cesar DO - Last Filed: 11/16/22 01:33> Medical History Acne ADHD (attention deficit hyperactivity disorder), inattentive type Anxiety Anxiety with limited-symptom attacks B12 deficiency due to diet Benign breast lumps Bilateral breast cysts (2012) Bilateral foot pain Bilateral pes planus Cervical cancer screening Cervical somatic dysfunction Chicken pox Chronic back pain Chronic bilateral low back pain without sciatica Chronic neck pain Chronic thoracic back pain Contact dermatitis Cranial somatic dysfunction Depression Family history of autoimmune disorder Fibroepithelioma Low back pain (09/2019) Lumbar region somatic dysfunction Memory loss, short term Migraines Oral contraception initial prescription Palpitations PCOS (polycystic ovarian syndrome) Pelvic somatic dysfunction Peripheral polyneuropathy Friedman syndrome Sacral region somatic dysfunction Screening for HPV (human papillomavirus) Segmental and somatic dysfunction of abdomen and other regions Situational mixed anxiety and depressive disorder Somatic dysfunction of lower extremity Tension headache Thoracic region somatic dysfunction Vaccine reaction Family History Mother Arthritis Glaucoma Cataracts, bilateral Hypertension Grandfather Cancer Grandmother Cancer Grandmother No problems noted. Father No problems noted. Social History marital status: household members: spouse and children Smoking Status: Never smoker second hand exposure: No alcohol intake: never substance use type: does not use Smoking Status: Never smoker Substance Use Type: does not use Exam <Tony Cesar DO - Last Filed: 11/16/22 01:33> Narrative Exam Narrative: GENERAL: [42] year old patient appears stated age. Well-developed patient, in no obvious distress. HEAD: Atraumatic. Normocephalic. EYES: Pupils equal round and reactive. Extraocular motions intact. No scleral icterus. No injection or drainage. ENT: Nose without bleeding, purulent drainage. Throat without erythema, tonsillar hypertrophy or exudate. Airway patent. NECK: Trachea midline. Non tender CARDIOVASCULAR: Regular rate and rhythm without murmurs, gallops, or rubs. RESPIRATORY: Clear to auscultation. Breath sounds equal bilaterally. No wheezes, rales, or rhonchi. GASTROINTESTINAL: Abdomen soft, non-tender, nondistended. EXTREMITIES: No edema or joint tenderness. BACK: Nontender without deformity or crepitance. No flank tenderness. NEURO: AOx3. SKIN: No rash or erythema of visible areas Initial Vital Signs Initial Vital Signs: Vital Signs Temperature 98.3 F 11/15/22 01:24 Pulse Rate 75 11/15/22 01:24 Respiratory Rate 17 11/15/22 01:24 Blood Pressure 120/58 L 11/15/22 01:24 Pulse Oximetry 99 11/15/22 01:24 Oxygen Delivery Method 11/15/22 01:24 <Perez Mitchell DO - Last Filed: 11/15/22 17:33> Initial Vital Signs Initial Vital Signs: Vital Signs Temperature 98.3 F 11/15/22 01:24 Pulse Rate 75 11/15/22 01:24 Respiratory Rate 17 11/15/22 01:24 Blood Pressure 120/58 L 11/15/22 01:24 Pulse Oximetry 99 11/15/22 01:24 Oxygen Delivery Method 11/15/22 01:24 Scores <Tony Cesar DO - Last Filed: 11/16/22 01:33> HEART Score Heart Score history: Moderately Suspicious Heart Score EKG: Normal Heart Score Age: < 45 years old Heart Score risk factors: No known risk factors Heart Score troponin: > 3 times normal limit Heart Score Total: 3 <Perez Mitchell DO - Last Filed: 11/15/22 17:33> HEART Score Heart Score Total: 3 Course <Tony Cesar DO - Last Filed: 11/16/22 01:33> Orders Ordered: Discontinued Medications Acetaminophen (Acetaminophen 325 Mg Tablet) 650 mg PO NOW ONE Stop: 11/15/22 13:45 Last Admin: 11/15/22 14:05 Dose: 650 mg Documented By: CHLOÉ Aspirin (Aspirin 81 Mg Chew Tab) 324 mg PO NOW ONE Stop: 11/15/22 01:30 Last Admin: 11/15/22 02:10 Dose: 324 mg Documented By: SANDRA Atorvastatin Calcium (Atorvastatin 20 Mg Tablet) 40 mg PO NOW ONE Stop: 11/15/22 03:07 Last Admin: 11/15/22 03:21 Dose: 40 mg Documented By: SANDRA Heparin Sodium (Porcine) (Heparin 5,000 Unit/Ml Vial) 5,000 unit IV NOW ONE Stop: 11/15/22 03:07 Last Admin: 11/15/22 03:21 Dose: 5,000 unit Documented By: SANDRA Heparin Sodium/Dextrose (Heparin Drip) 25,000 unit in 500 mls @ 20 mls/hr IV CONT PRETTY; Protocol Last Titration: 11/15/22 17:32 Dose: 1,050 units/hr, 21 mls/hr Documented By: Admin: 11/15/22 03:25 Dose: 1,000 units/hr, 20 mls/hr Documented By: SANDRA Reevaluation(s) Reevaluation #1: patient felt rapid heart rate, dizzy, light headed which corresponds to run of VT on monitor Vital Signs Vital signs: Vital Signs - 8 hr 11/15/22 18:00 Pulse Rate 82 Respiratory Rate 14 Pulse Oximetry 99 <Perez Mitchell DO - Last Filed: 11/15/22 17:33> Orders Ordered: Discontinued Medications Acetaminophen (Acetaminophen 325 Mg Tablet) 650 mg PO NOW ONE Stop: 11/15/22 13:45 Last Admin: 11/15/22 14:05 Dose: 650 mg Documented By: CHLOÉ Aspirin (Aspirin 81 Mg Chew Tab) 324 mg PO NOW ONE Stop: 11/15/22 01:30 Last Admin: 11/15/22 02:10 Dose: 324 mg Documented By: SANDRA Atorvastatin Calcium (Atorvastatin 20 Mg Tablet) 40 mg PO NOW ONE Stop: 11/15/22 03:07 Last Admin: 11/15/22 03:21 Dose: 40 mg Documented By: SANDRA Heparin Sodium (Porcine) (Heparin 5,000 Unit/Ml Vial) 5,000 unit IV NOW ONE Stop: 11/15/22 03:07 Last Admin: 11/15/22 03:21 Dose: 5,000 unit Documented By: SANDRA Heparin Sodium/Dextrose (Heparin Drip) 25,000 unit in 500 mls @ 20 mls/hr IV CONT PRETTY; Protocol Last Titration: 11/15/22 17:32 Dose: 1,050 units/hr, 21 mls/hr Documented By: Admin: 11/15/22 03:25 Dose: 1,000 units/hr, 20 mls/hr Documented By: SANDRA Vital Signs Vital signs: Vital Signs - 8 hr 11/15/22 18:00 Pulse Rate 82 Respiratory Rate 14 Pulse Oximetry 99 MDM - Chest Pain <Tony Cesar DO - Last Filed: 11/16/22 01:33> Lab Data 11/15/22 01:28 11/15/22 01:28 Labs: Lab Results 11/15/22 11/15/22 11/15/22 Range/Units 01: 01:28 01:28 WBC 11.8 H (4.5-11.0) X10^3/uL RBC 4.77 (4.0-5.2) X10^6/uL Hgb 13.7 (12.0-16.0) g/dL Hct 42.4 (36-46) % MCV 88.8 (80-100) fL MCH 28.7 (26-34) PG MCHC 32.3 (30-36) % RDW 13.2 (11.6-14.8) % Plt Count 318 (150-400) X10^3/uL Neut % (Auto) 71.5 (50-75) % Lymph % (Auto) 18.8 L (25-40) % [place] % (Auto) 5.7 (3-14) % Eos % (Auto) 1.7 L (2-4) % Baso % (Auto) 2.3 H (0-2) % Neut # (Auto) 8400 H (9675-6233) /uL Lymph # (Auto) 2200 (2079-0495) /uL [place] # (Auto) 700 (0-900) /uL Eos # (Auto) 200 (0-450) /uL Baso # (Auto) 300 H (0-100) /uL ESR (0-20) MM/HR PT 11.4 (10.1-12.7) SECONDS INR 1.0 (0.9-1.3) APTT 29 (26-36) SECONDS D-Dimer (<500) ng/ml Sodium 139 (137-145) mmol/L Potassium 3.8 (3.4-5.1) mmol/L Chloride 101 (98-107) mmol/L Carbon Dioxide 27 (22-32) mmol/L BUN 15 (7-17) mg/dL Creatinine 0.82 (0.52-1.04) mg/dL Estimated GFR > 60 (>60) mL/min BUN/Creatinine Ratio 18.3 (6-22) Glucose 118 H (70-100) mg/dL Calcium 9.4 (8.4-10.2) mg/dL Magnesium 2.3 (1.6-2.3) mg/dL Total Bilirubin 0.3 (0.2-1.3) mg/dL AST 25 (14-36) IU/L ALT 21 (<35) IU/L Alkaline Phosphatase 58 (38-126) U/L Total Creatine Kinase 133 (30-135) U/L CK-MB (CK-2) 9.64 H (<2.37) ng/mL CK-MB (CK-2) Rel Index 7.2 H* (1.5-5.0) % Troponin I 0.697 H* (0.01-0.034) ng/mL C-Reactive Protein (<1.0) mg/dL NT-Pro-B Natriuret Pep (<125) pg/mL Total Protein 7.7 (6.3-8.2) g/dL Albumin 4.6 (3.5-5.0) g/dL Globulin 3.1 (1.7-4.1) g/dL Albumin/Globulin Ratio 1.5 (1.0-2.8) Lipase 61 (23-300) U/L SARS-CoV-2 (PCR) (Negative) 11/15/22 11/15/22 11/15/22 Range/Units 01:28 01:28 01:28 WBC (4.5-11.0) X10^3/uL RBC (4.0-5.2) X10^6/uL Hgb (12.0-16.0) g/dL Hct (36-46) % MCV (80-100) fL MCH (26-34) PG MCHC (30-36) % RDW (11.6-14.8) % Plt Count (150-400) X10^3/uL Neut % (Auto) (50-75) % Lymph % (Auto) (25-40) % [place] % (Auto) (3-14) % Eos % (Auto) (2-4) % Baso % (Auto) (0-2) % Neut # (Auto) (5449-7418) /uL Lymph # (Auto) (6965-1687) /uL [place] # (Auto) (0-900) /uL Eos # (Auto) (0-450) /uL Baso # (Auto) (0-100) /uL ESR 3 (0-20) MM/HR PT (10.1-12.7) SECONDS INR (0.9-1.3) APTT (26-36) SECONDS D-Dimer < 215 (<500) ng/ml Sodium (137-145) mmol/L Potassium (3.4-5.1) mmol/L Chloride (98-107) mmol/L Carbon Dioxide (22-32) mmol/L BUN (7-17) mg/dL Creatinine (0.52-1.04) mg/dL Estimated GFR (>60) mL/min BUN/Creatinine Ratio (6-22) Glucose (70-100) mg/dL Calcium (8.4-10.2) mg/dL Magnesium (1.6-2.3) mg/dL Total Bilirubin (0.2-1.3) mg/dL AST (14-36) IU/L ALT (<35) IU/L Alkaline Phosphatase (38-126) U/L Total Creatine Kinase (30-135) U/L CK-MB (CK-2) (<2.37) ng/mL CK-MB (CK-2) Rel Index (1.5-5.0) % Troponin I (0.01-0.034) ng/mL C-Reactive Protein < 0.5 (<1.0) mg/dL NT-Pro-B Natriuret Pep 32 (<125) pg/mL Total Protein (6.3-8.2) g/dL Albumin (3.5-5.0) g/dL Globulin (1.7-4.1) g/dL Albumin/Globulin Ratio (1.0-2.8) Lipase (23-300) U/L SARS-CoV-2 (PCR) (Negative) 11/15/22 11/15/22 11/15/22 Range/Units 03:39 03:57 09:33 WBC (4.5-11.0) X10^3/uL RBC (4.0-5.2) X10^6/uL Hgb (12.0-16.0) g/dL Hct (36-46) % MCV (80-100) fL MCH (26-34) PG MCHC (30-36) % RDW (11.6-14.8) % Plt Count (150-400) X10^3/uL Neut % (Auto) (50-75) % Lymph % (Auto) (25-40) % [place] % (Auto) (3-14) % Eos % (Auto) (2-4) % Baso % (Auto) (0-2) % Neut # (Auto) (4835-4390) /uL Lymph # (Auto) (7176-7385) /uL [place] # (Auto) (0-900) /uL Eos # (Auto) (0-450) /uL Baso # (Auto) (0-100) /uL ESR (0-20) MM/HR PT (10.1-12.7) SECONDS INR (0.9-1.3) APTT 57 H D (26-36) SECONDS D-Dimer (<500) ng/ml Sodium (137-145) mmol/L Potassium (3.4-5.1) mmol/L Chloride (98-107) mmol/L Carbon Dioxide (22-32) mmol/L BUN (7-17) mg/dL Creatinine (0.52-1.04) mg/dL Estimated GFR (>60) mL/min BUN/Creatinine Ratio (6-22) Glucose (70-100) mg/dL Calcium (8.4-10.2) mg/dL Magnesium (1.6-2.3) mg/dL Total Bilirubin (0.2-1.3) mg/dL AST (14-36) IU/L ALT (<35) IU/L Alkaline Phosphatase (38-126) U/L Total Creatine Kinase 297 H (30-135) U/L CK-MB (CK-2) 28.80 H D (<2.37) ng/mL CK-MB (CK-2) Rel Index 9.7 H* (1.5-5.0) % Troponin I 4.500 H* (0.01-0.034) ng/mL C-Reactive Protein (<1.0) mg/dL NT-Pro-B Natriuret Pep (<125) pg/mL Total Protein (6.3-8.2) g/dL Albumin (3.5-5.0) g/dL Globulin (1.7-4.1) g/dL Albumin/Globulin Ratio (1.0-2.8) Lipase (23-300) U/L SARS-CoV-2 (PCR) Negative (Negative) 11/15/22 11/15/22 Range/Units 09:33 15:30 WBC (4.5-11.0) X10^3/uL RBC (4.0-5.2) X10^6/uL Hgb (12.0-16.0) g/dL Hct (36-46) % MCV (80-100) fL MCH (26-34) PG MCHC (30-36) % RDW (11.6-14.8) % Plt Count (150-400) X10^3/uL Neut % (Auto) (50-75) % Lymph % (Auto) (25-40) % [place] % (Auto) (3-14) % Eos % (Auto) (2-4) % Baso % (Auto) (0-2) % Neut # (Auto) (8308-2277) /uL Lymph # (Auto) (1243-1775) /uL [place] # (Auto) (0-900) /uL Eos # (Auto) (0-450) /uL Baso # (Auto) (0-100) /uL ESR (0-20) MM/HR PT (10.1-12.7) SECONDS INR (0.9-1.3) APTT 43 H D (26-36) SECONDS D-Dimer (<500) ng/ml Sodium (137-145) mmol/L Potassium (3.4-5.1) mmol/L Chloride (98-107) mmol/L Carbon Dioxide (22-32) mmol/L BUN (7-17) mg/dL Creatinine (0.52-1.04) mg/dL Estimated GFR (>60) mL/min BUN/Creatinine Ratio (6-22) Glucose (70-100) mg/dL Calcium (8.4-10.2) mg/dL Magnesium (1.6-2.3) mg/dL Total Bilirubin (0.2-1.3) mg/dL AST (14-36) IU/L ALT (<35) IU/L Alkaline Phosphatase (38-126) U/L Total Creatine Kinase (30-135) U/L CK-MB (CK-2) (<2.37) ng/mL CK-MB (CK-2) Rel Index (1.5-5.0) % Troponin I 8.440 H* (0.01-0.034) ng/mL C-Reactive Protein (<1.0) mg/dL NT-Pro-B Natriuret Pep (<125) pg/mL Total Protein (6.3-8.2) g/dL Albumin (3.5-5.0) g/dL Globulin (1.7-4.1) g/dL Albumin/Globulin Ratio (1.0-2.8) Lipase (23-300) U/L SARS-CoV-2 (PCR) (Negative) ECG Data Interpretation: [0124] EKG is normal sinus rhythm rate [69 ] and free of any signs of ischemia or ectopy. No ST segmental elevation or depression. No T wave inversions [0214] EKG is normal sinus rhythm rate [ 64] and free of any signs of ischemia or ectopy. No ST segmental elevation or depression. No T wave inversions MDM Narrative Medical decision making narrative: 42-year-old female without any cardiac history presents with an episode of retrosternal chest pain that she rates as sharp and stabbing in absence of any obvious provocation or palliation admits to radiation across her chest and to bilateral shoulders and down both arms including up into left jaw, her symptoms lasted about 1 hour and she took aspirin prior to her arrival. EKGs are nonocclusive and troponin is elevated at rising. Early call to cardiology (Dr. Torrez) who is in agreement with heparin, full-dose aspirin, atorvastatin. Recommends continuing these plans until we can obtain an echo this morning and then reaching out to his partner. Recommends metoprolol tartrate for any ongoing V-tach episodes [id number] - Shan ([facility] Cardio) requests transfer upon receipt of increased troponin. Call to [facility]. Facesheet sent Patient signed out to Dr. Mitchell <Perez Mitchell, DO - Last Filed: 11/15/22 17:33> Lab Data Labs: Lab Results 11/15/22 11/15/22 11/15/22 Range/Units 01:28 01:28 01:28 WBC 11.8 H (4.5-11.0) X10^3/uL RBC 4.77 (4.0-5.2) X10^6/uL Hgb 13.7 (12.0-16.0) g/dL Hct 42.4 (36-46) % MCV 88.8 (80-100) fL MCH 28.7 (26-34) PG MCHC 32.3 (30-36) % RDW 13.2 (11.6-14.8) % Plt Count 318 (150-400) X10^3/uL Neut % (Auto) 71.5 (50-75) % Lymph % (Auto) 18.8 L (25-40) % [place] % (Auto) 5.7 (3-14) % Eos % (Auto) 1.7 L (2-4) % Baso % (Auto) 2.3 H (0-2) % Neut # (Auto) 8400 H (0181-4194) /uL Lymph # (Auto) 2200 (7908-6190) /uL [place] # (Auto) 700 (0-900) /uL Eos # (Auto) 200 (0-450) /uL Baso # (Auto) 300 H (0-100) /uL ESR (0-20) MM/HR PT 11.4 (10.1-12.7) SECONDS INR 1.0 (0.9-1.3) APTT 29 (26-36) SECONDS D-Dimer (<500) ng/ml Sodium 139 (137-145) mmol/L Potassium 3.8 (3.4-5.1) mmol/L Chloride 101 (98-107) mmol/L Carbon Dioxide 27 (22-32) mmol/L BUN 15 (7-17) mg/dL Creatinine 0.82 (0.52-1.04) mg/dL Estimated GFR > 60 (>60) mL/min BUN/Creatinine Ratio 18.3 (6-22) Glucose 118 H (70-100) mg/dL Calcium 9.4 (8.4-10.2) mg/dL Magnesium 2.3 (1.6-2.3) mg/dL Total Bilirubin 0.3 (0.2-1.3) mg/dL AST 25 (14-36) IU/L ALT 21 (<35) IU/L Alkaline Phosphatase 58 (38-126) U/L Total Creatine Kinase 133 (30-135) U/L CK-MB (CK-2) 9.64 H (<2.37) ng/mL CK-MB (CK-2) Rel Index 7.2 H* (1.5-5.0) % Troponin I 0.697 H* (0.01-0.034) ng/mL C-Reactive Protein (<1.0) mg/dL NT-Pro-B Natriuret Pep (<125) pg/mL Total Protein 7.7 (6.3-8.2) g/dL Albumin 4.6 (3.5-5.0) g/dL Globulin 3.1 (1.7-4.1) g/dL Albumin/Globulin Ratio 1.5 (1.0-2.8) Lipase 61 (23-300) U/L SARS-CoV-2 (PCR) (Negative) 11/15/22 11/15/22 11/15/22 Range/Units 01:28 01: 01:28 WBC (4.5-11.0) X10^3/uL RBC (4.0-5.2) X10^6/uL Hgb (12.0-16.0) g/dL Hct (36-46) % MCV (80-100) fL MCH (26-34) PG MCHC (30-36) % RDW (11.6-14.8) % Plt Count (150-400) X10^3/uL Neut % (Auto) (50-75) % Lymph % (Auto) (25-40) % [place] % (Auto) (3-14) % Eos % (Auto) (2-4) % Baso % (Auto) (0-2) % Neut # (Auto) (9859-3594) /uL Lymph # (Auto) (6417-4267) /uL [place] # (Auto) (0-900) /uL Eos # (Auto) (0-450) /uL Baso # (Auto) (0-100) /uL ESR 3 (0-20) MM/HR PT (10.1-12.7) SECONDS INR (0.9-1.3) APTT (26-36) SECONDS D-Dimer < 215 (<500) ng/ml Sodium (137-145) mmol/L Potassium (3.4-5.1) mmol/L Chloride (98-107) mmol/L Carbon Dioxide (22-32) mmol/L BUN (7-17) mg/dL Creatinine (0.52-1.04) mg/dL Estimated GFR (>60) mL/min BUN/Creatinine Ratio (6-22) Glucose (70-100) mg/dL Calcium (8.4-10.2) mg/dL Magnesium (1.6-2.3) mg/dL Total Bilirubin (0.2-1.3) mg/dL AST (14-36) IU/L ALT (<35) IU/L Alkaline Phosphatase (38-126) U/L Total Creatine Kinase (30-135) U/L CK-MB (CK-2) (<2.37) ng/mL CK-MB (CK-2) Rel Index (1.5-5.0) % Troponin I (0.01-0.034) ng/mL C-Reactive Protein < 0.5 (<1.0) mg/dL NT-Pro-B Natriuret Pep 32 (<125) pg/mL Total Protein (6.3-8.2) g/dL Albumin (3.5-5.0) g/dL Globulin (1.7-4.1) g/dL Albumin/Globulin Ratio (1.0-2.8) Lipase (23-300) U/L SARS-CoV-2 (PCR) (Negative) 11/15/22 11/15/22 11/15/22 Range/Units 03:39 03:57 09:33 WBC (4.5-11.0) X10^3/uL RBC (4.0-5.2) X10^6/uL Hgb (12.0-16.0) g/dL Hct (36-46) % MCV (80-100) fL MCH (26-34) PG MCHC (30-36) % RDW (11.6-14.8) % Plt Count (150-400) X10^3/uL Neut % (Auto) (50-75) % Lymph % (Auto) (25-40) % [place] % (Auto) (3-14) % Eos % (Auto) (2-4) % Baso % (Auto) (0-2) % Neut # (Auto) (5521-0307) /uL Lymph # (Auto) (3925-2539) /uL [place] # (Auto) (0-900) /uL Eos # (Auto) (0-450) /uL Baso # (Auto) (0-100) /uL ESR (0-20) MM/HR PT (10.1-12.7) SECONDS INR (0.9-1.3) APTT 57 H D (26-36) SECONDS D-Dimer (<500) ng/ml Sodium (137-145) mmol/L Potassium (3.4-5.1) mmol/L Chloride (98-107) mmol/L Carbon Dioxide (22-32) mmol/L BUN (7-17) mg/dL Creatinine (0.52-1.04) mg/dL Estimated GFR (>60) mL/min BUN/Creatinine Ratio (6-22) Glucose (70-100) mg/dL Calcium (8.4-10.2) mg/dL Magnesium (1.6-2.3) mg/dL Total Bilirubin (0.2-1.3) mg/dL AST (14-36) IU/L ALT (<35) IU/L Alkaline Phosphatase (38-126) U/L Total Creatine Kinase 297 H (30-135) U/L CK-MB (CK-2) 28.80 H D (<2.37) ng/mL CK-MB (CK-2) Rel Index 9.7 H* (1.5-5.0) % Troponin I 4.500 H* (0.01-0.034) ng/mL C-Reactive Protein (<1.0) mg/dL NT-Pro-B Natriuret Pep (<125) pg/mL Total Protein (6.3-8.2) g/dL Albumin (3.5-5.0) g/dL Globulin (1.7-4.1) g/dL Albumin/Globulin Ratio (1.0-2.8) Lipase (23-300) U/L SARS-CoV-2 (PCR) Negative (Negative) 11/15/22 11/15/22 Range/Units 09:33 15:30 WBC (4.5-11.0) X10^3/uL RBC (4.0-5.2) X10^6/uL Hgb (12.0-16.0) g/dL Hct (36-46) % MCV (80-100) fL MCH (26-34) PG MCHC (30-36) % RDW (11.6-14.8) % Plt Count (150-400) X10^3/uL Neut % (Auto) (50-75) % Lymph % (Auto) (25-40) % [place] % (Auto) (3-14) % Eos % (Auto) (2-4) % Baso % (Auto) (0-2) % Neut # (Auto) (0830-7762) /uL Lymph # (Auto) (7456-5290) /uL [place] # (Auto) (0-900) /uL Eos # (Auto) (0-450) /uL Baso # (Auto) (0-100) /uL ESR (0-20) MM/HR PT (10.1-12.7) SECONDS INR (0.9-1.3) APTT 43 H D (26-36) SECONDS D-Dimer (<500) ng/ml Sodium (137-145) mmol/L Potassium (3.4-5.1) mmol/L Chloride (98-107) mmol/L Carbon Dioxide (22-32) mmol/L BUN (7-17) mg/dL Creatinine (0.52-1.04) mg/dL Estimated GFR (>60) mL/min BUN/Creatinine Ratio (6-22) Glucose (70-100) mg/dL Calcium (8.4-10.2) mg/dL Magnesium (1.6-2.3) mg/dL Total Bilirubin (0.2-1.3) mg/dL AST (14-36) IU/L ALT (<35) IU/L Alkaline Phosphatase (38-126) U/L Total Creatine Kinase (30-135) U/L CK-MB (CK-2) (<2.37) ng/mL CK-MB (CK-2) Rel Index (1.5-5.0) % Troponin I 8.440 H* (0.01-0.034) ng/mL C-Reactive Protein (<1.0) mg/dL NT-Pro-B Natriuret Pep (<125) pg/mL Total Protein (6.3-8.2) g/dL Albumin (3.5-5.0) g/dL Globulin (1.7-4.1) g/dL Albumin/Globulin Ratio (1.0-2.8) Lipase (23-300) U/L SARS-CoV-2 (PCR) (Negative) Imaging Data echo: Radiologist's Impression: [address] [address] Echocardiography Report Signed Patient: Aimee Wright MR#: [id number] : 1980 Acct:[id number] Age/Sex: 42 / F Date of Service: 11/15/22 Loc: ED Accession Number: [id number] ?? Procedure: EC echo doppler complete Ordering Provider: Tony Cesar D.O. ? [facility] +---------+? [facility]? +---------+ : ? :? [address] [place] [address] ? : ? : : ? :? [place], [place] ? : ? : : ? :? [id number] ? : ? : : ? : ? Phone: [phone] : ? : +---------[phone]? [phone]? +---------+ ? Echocardiogram Report + + :Name: AIMEE WRIGHT Donna? Study Date: 11/15/2022 ? Height: 67 in? : :Hospital ? ? ReadingLocation: ? Weight: 188 lb : : ? Gender: Female ? BSA: 2.0 m2? ? : :: 1980? Age: 42 yrs? BP: 111/64 mmHg: :Reason For Study: NSTEMI ? : :Ordering Physician: WOJCIECH,? : :TONY ? Performed By: Chika Vazquez? : :Referring: TONY CESAR? : + + Interpretation Summary 1) Normal left ventricular thickness, size, and systolic function (EF 55-60%). 2) There are no obvious focal wall motion abnormalities noted but poor endocardial definition reduces the sensitivity for the detection of such. 3) Normal right ventricular size with low normal function. 4) No significant valvular abnormalities. 5) No prior Echo available for comparison. ? Procedure: ? A two-dimensional transthoracic echocardiogram with color flow and Doppler was performed. The study quality was technically adequate. There is no prior echocardiogram noted for this patient. The patient was in sinus rhythm with heart rates between 64-81 bpm during the exam. Left Ventricle: ? The left ventricle is normal in size and wall thickness. The ejection fraction is estimated to be 55-60%. There are no obvious focal wall motion abnormalities noted but poor endocardial definition reduces the sensitivity for the detection of such. Right Ventricle: ? The right ventricle is normal size. Right ventricular systolic function is at the lower limits of normal. Atria: ? The left atrial size is normal. Right atrial size is normal. There is no Doppler evidence for an interatrial shunt. Mitral Valve: ? The mitral valve is normal in structure and function. There is mild mitral regurgitation. Aortic Valve: ? The aortic valve is trileaflet. The aortic valve opens well. There is no aortic valve stenosis. There is trace aortic regurgitation. Tricuspid Valve: ? The tricuspid valve is normal in structure and function. There is a trace or physiologic amount of tricuspid regurgitation. Pulmonic Valve: ? The pulmonic valve is not well visualized. There is no pulmonic valvular regurgitation. Great Vessels: ? The aortic root is normal size. The dimensions of the ascending aorta are normal. The IVC is of normal diameter and collapses greater than 50% with a sniff. This suggests a low right atrial pressure of 3 mm Hg. Pericardium/ Pleura ? There is no pericardial effusion. There is no pleural effusion. ? MMode/2D Measurements & Calculations LVIDd: 5.0 cm? LVOT diam: 2.1 cm LVIDs: 3.4 cm? Ao root diam: 3.0 cm FS: 31.3 % ? asc Aorta Diam: 2.9 cm IVSd: 0.71 cm? Ao Arch Diam (Prox Trans): 2.6 cm LVPWd: 0.76 cm LV bailey. diameter/BSA (cm/m^2): 2.5 LV sys. diameter/BSA (cm/m^2): 1.7 ? LA A2 area: 17.2 cm2 ? RA long axis: 4.7 cm LA A4 area: 14.2 cm2 ? RA area: 13.0 cm2 LA length (vol): 4.6 cm? RA vol: 30.2 ml LA vol: 44.8 ml? RA : 15.3 ml/m2 LA vol index: 22.8 ml/m2 ? IVC diam: 0.98 cm ? RVD1 (basal): 3.1 cm RVD2 (mid): 2.9 cm TAPSE: 1.7 cm ? Doppler Measurements & Calculations Ao V2 max: 112.4 cm/sec? LVOT Max Jesus: 108.5 cm/sec Ao V2 mean: 76.2 cm/sec? LV V1 max P.7 mmHg Ao max P.1 mmHg? LV V1 VTI: 17.3 cm Ao mean P.7 mmHg ? TASNEEM(I,D): 3.0 cm2 Ao V2 VTI: 20.6 cm ? TASNEEM(V,D): 3.5 cm2 ? sev ratio: 0.84 ? TASNEEM indexed to BSA (cm^2/m^2): 1.5 ? MV E max jesus: 58.1 cm/sec? PA V2 max: 97.7 cm/sec MV A max jesus: 56.4 cm/sec? PA V2 mean: 68.0 cm/sec MV E/A: 1.0? PA mean P.1 mmHg Med Peak E' Jesus: 7.8 cm/sec? PA pr(Accel): 25.9 mmHg E/E' med: 7.5 Lat Peak E' Jesus: 11.5 cm/sec E/E' lat: 5.1 E/e' average: 6.3 MV dec time: 0.14 sec ? SV(LVOT): 62.0 ml ? Reading Physician:09:10 AM MDM Narrative Medical decision making narrative: 42-year-old female without any cardiac history presents with an episode of retrosternal chest pain that she rates as sharp and stabbing in absence of any obvious provocation or palliation admits to radiation across her chest and to bilateral shoulders and down both arms including up into left jaw, her symptoms lasted about 1 hour and she took aspirin prior to her arrival. EKGs are nonocclusive and troponin is elevated at rising. Early call to cardiology (Dr. Torrez) who is in agreement with heparin, full-dose aspirin, atorvastatin. Recommends continuing these plans until we can obtain an echo this morning and then reaching out to his partner. Recommends metoprolol tartrate for any ongoing V-tach episodes 0645 - Shan ([facility] Cardio) requests transfer upon receipt of increased troponin. Call to [facility]. Facesheet sent Patient signed out to Dr. Paula mitchell: Received turned over. Viewed patient's history and physical exam. Performed my own independent evaluation. Patient is currently on heparin. Her troponins continue to elevate. She is no ischemic changes on her EKG. Had a discussion with her regarding this. We discussed possibilities why her troponin is elevating to include ACS, non ST-elevation [place], pericarditis, endocarditis. She is no fevers. Her D-dimer is negative. Chest x-rays negative. No recent immunizations. No recent illnesses. Her EKG is not consistent with pericarditis. Patient is not ill appearing. No antibiotics administered. I did discuss the case with Dr. Bañuelos on-call for Cardiology at [facility] who agreed to see the patient upon transfer. Then discuss the case with Dr. Baker with the hospitalist service at [facility] who accepts the patient in transport. The patient is stable for transport. Critical Care Time <Tony Cesar DO - Last Filed: 11/16/22 01:33> Critical Care Time Critical Care Time: Yes Total Critical Care Time: 45 Attestation: The high probability of a clinically significant, sudden or life threatening deterioration of the [CV] system(s) required my full and direct attention, intervention and personal management. The aggregate critical care time was [45] minutes. This time is in addition to time spent performing reported procedures but includes the following: [x] Data Review and interpretation [x] Patient assessment and monitoring of vital signs [x] Documentation [x] Medication orders and management Discharge Plan Departure Patient Disposition: [facility] Clinical Impression: Acute non-ST elevation myocardial infarction (NSTEMI) Prescriptions: No Action cyanocobalamin (vitamin B-12) 1,000 mcg/mL solution 1,000 mcg IM QMONTH Qty: 3 3RF norgestimate-ethinyl estradiol [Rvh-Ng-Cimvvt] 0.18/0.215/0.25 mg-25 mcg tablet 1 tab PO DAILY Qty: 84 3RF hydroxyzine HCl 10 mg tablet 10 mg PO TID PRN (Reason: anxiety) Qty: 90 5RF methylphenidate HCl [Concerta] 18 mg tablet extended release 24hr 18 mg PO DAILY Qty: 30 0RF fzvurypval-ypyomeawjmhai-jrej 50-325-40 mg capsule 1 cap PO Q4-6H PRN (Reason: pain) Qty: 20 5RF dextroamphetamine-amphetamine 5 mg tablet 5 mg PO TID Qty: 90 0RF multivitamin Tablet 1 tab PO DAILY cholecalciferol (vitamin D3) 10 mcg (400 unit) capsule 10 mcg PO DAILY Referrals: Ad Vasquez DO [Primary Care Provider] -
[2022-11-15 02:29] LABS: C-Reactive Protein Quant < 0.5 mg/dL (<1.0)
[2022-11-15 02:35] LABS: NT-proBNP (BNP-Adult 18+) 32 pg/mL (<125)
[2022-11-15 02:37] LABS: Erythrocyte Sedimentation Rate 3 MM/HR (0-20)
[2022-11-15 02:56] LABS: D Dimer < 215 ng/ml (<500)
[2022-11-15] MEDS: HEPARIN 5,000 UNIT/ML VIAL 5000 UNIT IV (03:21)
[2022-11-15] MEDS: ATORVASTATIN 20 MG TABLET 40 MG PO (03:21)
[2022-11-15] MEDS: HEPARIN DRIP 25,000 UNIT/500 ML IV.SOLN 20 UNIT IV (03:25)
[2022-11-15 03:57] LABS: Creatine Kinase 297 U/L (30-135)
--- NOTE | 2022-11-15 04:00 | DI.ECHO.S_ITS ---
[facility] +---------+ Hospital +---------+ : : [address] : : : : [id number] : : : : Phone: [phone]+ Echocardiogram Report + + :Name: MUSHTAQ WRIGHT Study Date: 11/15/2022 Height: 67 in : :[employer] ReadingLocation: Weight: 188 lb : : Gender: Female BSA: 2.0 m2 : :: 1980 Age: 42 yrs BP: 111/64 mmHg: :Reason For Study: NSTEMI : :Ordering Physician: WOJCIECH, : :TONY Performed By: Chika Vazquez : :Referring: TONY JEFFREY : + + Interpretation Summary 1) Normal left ventricular thickness, size, and systolic function (EF 55-60%). 2) There are no obvious focal wall motion abnormalities noted but poor endocardial definition reduces the sensitivity for the detection of such. 3) Normal right ventricular size with low normal function. 4) No significant valvular abnormalities. 5) No prior Echo available for comparison. Procedure: A two-dimensional transthoracic echocardiogram with color flow and Doppler was performed. The study quality was technically adequate. There is no prior echocardiogram noted for this patient. The patient was in sinus rhythm with heart rates between 64-81 bpm during the exam. Left Ventricle: The left ventricle is normal in size and wall thickness. The ejection fraction is estimated to be 55-60%. There are no obvious focal wall motion abnormalities noted but poor endocardial definition reduces the sensitivity for the detection of such. Right Ventricle: The right ventricle is normal size. Right ventricular systolic function is at the lower limits of normal. Atria: The left atrial size is normal. Right atrial size is normal. There is no Doppler evidence for an interatrial shunt. Mitral Valve: The mitral valve is normal in structure and function. There is mild mitral regurgitation. Aortic Valve: The aortic valve is trileaflet. The aortic valve opens well. There is no aortic valve stenosis. There is trace aortic regurgitation. Tricuspid Valve: The tricuspid valve is normal in structure and function. There is a trace or physiologic amount of tricuspid regurgitation. Pulmonic Valve: The pulmonic valve is not well visualized. There is no pulmonic valvular regurgitation. Great Vessels: The aortic root is normal size. The dimensions of the ascending aorta are normal. The IVC is of normal diameter and collapses greater than 50% with a sniff. This suggests a low right atrial pressure of 3 mm Hg. Pericardium/ Pleura There is no pericardial effusion. There is no pleural effusion. MMode/2D Measurements & Calculations LVIDd: 5.0 cm LVOT diam: 2.1 cm LVIDs: 3.4 cm Ao root diam: 3.0 cm FS: 31.3 % asc Aorta Diam: 2.9 cm IVSd: 0.71 cm Ao Arch Diam (Prox Trans): 2.6 cm LVPWd: 0.76 cm LV bailey. diameter/BSA (cm/m^2): 2.5 LV sys. diameter/BSA (cm/m^2): 1.7 LA A2 area: 17.2 cm2 RA long axis: 4.7 cm LA A4 area: 14.2 cm2 RA area: 13.0 cm2 LA length (vol): 4.6 cm RA vol: 30.2 ml LA vol: 44.8 ml RA : 15.3 ml/m2 LA vol index: 22.8 ml/m2 IVC diam: 0.98 cm RVD1 (basal): 3.1 cm RVD2 (mid): 2.9 cm TAPSE: 1.7 cm Doppler Measurements & Calculations Ao V2 max: 112.4 cm/sec LVOT Max Jesus: 108.5 cm/sec Ao V2 mean: 76.2 cm/sec LV V1 max P.7 mmHg Ao max P.1 mmHg LV V1 VTI: 17.3 cm Ao mean P.7 mmHg TASNEEM(I,D): 3.0 cm2 Ao V2 VTI: 20.6 cm TASNEEM(V,D): 3.5 cm2 sev ratio: 0.84 TASNEEM indexed to BSA (cm^2/m^2): 1.5 MV E max jesus: 58.1 cm/sec PA V2 max: 97.7 cm/sec MV A max jesus: 56.4 cm/sec PA V2 mean: 68.0 cm/sec MV E/A: 1.0 PA mean P.1 mmHg Med Peak E' Jesus: 7.8 cm/sec PA pr(Accel): 25.9 mmHg E/E' med: 7.5 Lat Peak E' Jesus: 11.5 cm/sec E/E' lat: 5.1 E/e' average: 6.3 MV dec time: 0.14 sec SV(LVOT): 62.0 ml Reading Physician:09:10 AM
[2022-11-15 04:16] LABS: CKMB % Relative Index 9.7 % (1.5-5.0)
[2022-11-15 04:44] LABS: COVID19 -Nasal RAPID Negative (Negative)
[2022-11-15 09:51] LABS: PTT Partial Thromboplastin Tim 57 SECONDS (26-36)
[2022-11-15] MEDS: ACETAMINOPHEN 325 MG TABLET 650 MG PO (14:05)
--- NOTE | 2022-11-15 14:50 | PC.NURSE ---
Made calls to other hospitals for pt to be transferred for an NSTEMI. [facility], [facility], [place] and had room for waitlist. [facility] were at capacity and could not take the pt. [facility] called back to let us know that they are working on the pt's case. I will still be making calls to [place] and [place] to see for availability on any waitlist.
[2022-11-15 16:36] LABS: PTT Partial Thromboplastin Tim 43 SECONDS (26-36)
== END 2022-11-15 18:28 | disposition short-term general hospital (02) ==
PROVIDERS: Emergency Medicine; Emergency Provider Emergency Medicine; Family Provider Family Medicine; PCP Family Medicine
DX: I21.4 Non-ST elevation (NSTEMI) myocardial infarction (principal); Z20.822 Contact with and (suspected) exposure to COVID-19; R79.89 Other specified abnormal findings of blood chemistry
CPT/HCPCS: 36415; 71045; 80053; 82550; 82553; 83690; 83735; 83880; 84484; 85025; 85379; 85610; 85651; 85730; 86140; 87635; 93005; 93306; 96365; 96366; 96375; 99284; 99291; C9803; J1644

== ENCOUNTER → 2023-05-05 09:51 | Outpatient (CLI) | payer BC, SELFPAY ==
[2023-05-05 10:41] LABS: Add Manual Diff / Slide Review NO; Basophils Absolute Auto 100 /uL (0-100); Basophils Percent Auto 0.7 % (0-2); Eosinophils Absolute Auto 300 /uL (0-450); Eosinophils Percent Auto 3.5 % (2-4); Hematocrit 39.7 % (36-46); Hemoglobin 13.6 g/dL (12.0-16.0); Lymphocytes Absolute Auto 2400 /uL (1100-4500); Lymphocytes Percent Auto 32.5 % (25-40); Mean Corpuscular HGB Conc 34.1 % (30-36); Mean Corpuscular Hemoglobin 29.8 PG (26-34); Mean Corpuscular Volume 87.4 fL (80-100); Monocytes Absolute Auto 500 /uL (0-900); Monocytes Percent Auto 6.6 % (3-14); Neutrophils Absolute Auto 4100 /uL (1500-7000); Neutrophils Percent Auto 56.7 % (50-75); Platelet Count 298 X10^3/uL (150-400); Red Blood Cell Count 4.55 X10^6/uL (4.0-5.2); Red Cell Distribution Width 13.6 % (11.6-14.8); White Blood Cell Count 7.3 X10^3/uL (4.5-11.0)
[2023-05-05 10:55] LABS: Alanine Aminotransferase 20 IU/L (<35); Albumin 4.1 g/dL (3.5-5.0); Albumin Globulin Ratio 1.5 (1.0-2.8); Alkaline Phosphatase 44 U/L (38-126); Aspartate Aminotransferase 22 IU/L (14-36); BUN Creatinine Ratio 14.3 (6-22); Bilirubin Total 0.5 mg/dL (0.2-1.3); Blood Urea Nitrogen 12 mg/dL (7-17); Carbon Dioxide 30 mmol/L (22-32); Chloride 104 mmol/L (98-107); Cholesterol 159 mg/dL (140-199); Estimated Glomerular Filt Rate > 60 mL/min (>60); Globulin 2.7 g/dL (1.7-4.1); Glucose 96 mg/dL (70-100); HDL Cholesterol 40 mg/dL (40-60); HEMOLYSIS < 15 (0-50); LDL Cholesterol Calculated 96 mg/dL (<100); Potassium 4.4 mmol/L (3.4-5.1); Sodium 139 mmol/L (137-145); Total Protein 6.8 g/dL (6.3-8.2); Triglycerides 117 mg/dL (35-150)
[2023-05-05 11:20] LABS: TSH w/ Reflex to FT4 0.96 uIU/mL (0.47-4.68)
[2023-05-05 11:39] LABS: Vitamin B12 455 pg/mL (239-931)
[2023-05-05 17:26] LABS: Vitamin D 25 Hydroxy (D3) 55.7 ng/mL (30.0-100.0)
[2023-05-06 08:47] LABS: x Labcorp Estim. Avg Glu (eAG) 108 mg/dL (.); x Labcorp Hemoglobin A1c 5.4 % (4.8-5.6)
== END ==
PROVIDERS: Family Provider Family Medicine; PCP Family Medicine; Referring Provider Family Medicine; Visit Provider Family Medicine
DX: D64.9 Anemia, unspecified (principal); E28.2 Polycystic ovarian syndrome; E53.8 Deficiency of other specified B group vitamins; F32.9 Major depressive disorder, single episode, unspecified; G62.9 Polyneuropathy, unspecified; I10 Essential (primary) hypertension; I21.4 Non-ST elevation (NSTEMI) myocardial infarction
CPT/HCPCS: 36415; 80053; 80061; 82306; 82607; 83036; 84443; 85025

== ENCOUNTER → 2023-06-29 10:48 | Outpatient (CLI) | payer BC, SELFPAY ==
[2023-06-29 12:19] LABS: BUN Creatinine Ratio 14.1 (6-22); Blood Urea Nitrogen 12 mg/dL (7-17); Carbon Dioxide 28 mmol/L (22-32); Chloride 101 mmol/L (98-107); Estimated Glomerular Filt Rate > 60 mL/min (>60); Glucose 89 mg/dL (70-100); HEMOLYSIS < 15 (0-50); Magnesium 2.6 mg/dL (1.6-2.3); Phosphorous 4.1 mg/dL (2.5-4.5); Potassium 4.1 mmol/L (3.4-5.1); Sodium 135 mmol/L (137-145)
== END ==
PROVIDERS: Family Provider Family Medicine; PCP Family Medicine; Referring Provider Physician Assistant; Visit Provider Physician Assistant
DX: M79.662 Pain in left lower leg (principal)
CPT/HCPCS: 36415; 80048; 83735; 84100

== ENCOUNTER → 2023-06-29 11:39 | Outpatient (CLI) | payer BC, SELFPAY ==
--- NOTE | 2023-06-29 11:40 | DI.US.S_ITS ---
PROCEDURE: US PERIPH VENOUS LOW EXTREM LT INDICATIONS: RIGHT LOWER LEG PAIN TECHNIQUE: Real-time imaging, as well as color and pulse Doppler interrogation, were performed of the lower extremity deep veins from the inguinal ligament to the popliteal fossa, with documentation of the visualized calf veins. COMPARISON: None. FINDINGS: The common femoral, femoral, popliteal, and the visualized calf veins are normally compressible, and free of intraluminal thrombus. Color and pulse Doppler demonstrate normal phasic intraluminal flow. There is normal augmentation response to distal compression maneuver. IMPRESSION: No findings of lower extremity deep venous thrombosis. Dictated by: Mina Santiago M.D. on 06/29/2023 at 11:48 Approved by: Mina Santiago M.D. on 06/29/2023 at 11:49
== END ==
PROVIDERS: Family Provider Family Medicine; PCP Family Medicine; Referring Provider Physician Assistant; Visit Provider Physician Assistant
DX: M79.662 Pain in left lower leg (principal)
CPT/HCPCS: 36415; 80048; 83735; 84100; 93971

== ENCOUNTER → 2024-02-16 17:05 | Outpatient (CLI) | payer BC, SELFPAY ==
--- NOTE | 2024-02-16 17:07 | DI.MG.S_ITS ---
BILATERAL DIGITAL SCREENING MAMMOGRAM 3D/2D WITH CAD: 02/16/2024 Comparison is made to exams dated: 03/19/2021 mammogram, 09/25/2020 mammogram, and 09/22/2020 mammogram - [facility]. Both breasts are heterogeneously dense, which may obscure small masses (category c / 51-75% glandular tissue). Current study was also evaluated with a Computer Aided Detection (CAD) system. There are biopsy clips in the right breast. No significant masses, calcifications, or other findings are seen in either breast. There has been no significant interval change. IMPRESSION: NEGATIVE There is no mammographic evidence of malignancy. A 1 year screening mammogram is recommended. Based on the Tyrer Cuzick model (a risk assessment model) the patient's lifetime risk is 10.9% and her 10 year risk is 2.0%. According to the ACR, ACS, and NCCN guidelines, an annual breast MRI exam along with mammogram is recommended if the patient's lifetime risk is 20% or greater. This exam was interpreted at Station ID: [id number]. NOTE: For mammograms, a report in lay terms will be sent to the patient. Approximately 15% of breast malignancies will not be visualized mammographically. In the management of a palpable breast mass, a negative mammogram must not discourage biopsy of a clinically suspicious lesion. Electronically Signed By: Jovon neri/anton:02/17/2024 12:10:59 letter sent: Normal Exam ACR BI-RADS Category 1: Negative [id number]
== END ==
PROVIDERS: Family Provider Family Medicine; PCP Family Medicine; Referring Provider Family Medicine; Visit Provider Family Medicine
DX: Z12.31 Encounter for screening mammogram for malignant neoplasm of breast (principal); R92.30 Dense breasts, unspecified
CPT/HCPCS: 77063; 77067

== ENCOUNTER → 2024-04-24 07:44 | Outpatient (CLI) | payer BC, SELFPAY ==
[2024-04-24 08:40] LABS: Add Manual Diff / Slide Review NO; Basophils Absolute Auto 100 /uL (0-100); Basophils Percent Auto 0.8 % (0-2); Eosinophils Absolute Auto 200 /uL (0-450); Eosinophils Percent Auto 2.4 % (2-4); Hematocrit 40.4 % (36-46); Hemoglobin 13.7 g/dL (12.0-16.0); Lymphocytes Absolute Auto 2700 /uL (1100-4500); Lymphocytes Percent Auto 31.7 % (25-40); Mean Corpuscular HGB Conc 33.8 % (30-36); Mean Corpuscular Hemoglobin 29.5 PG (26-34); Mean Corpuscular Volume 87.3 fL (80-100); Monocytes Absolute Auto 600 /uL (0-900); Neutrophils Absolute Auto 4900 /uL (1500-7000); Neutrophils Percent Auto 58.1 % (50-75); Platelet Count 340 X10^3/uL (150-400); Red Blood Cell Count 4.62 X10^6/uL (4.0-5.2); White Blood Cell Count 8.5 X10^3/uL (4.5-11.0)
[2024-04-24 09:13] LABS: Alanine Aminotransferase 19 IU/L (<35); Albumin 4.2 g/dL (3.5-5.0); Albumin Globulin Ratio 1.6 (1.0-2.8); Alkaline Phosphatase 47 U/L (38-126); Aspartate Aminotransferase 19 IU/L (14-36); BUN Creatinine Ratio 15.6 (6-22); Bilirubin Total 0.4 mg/dL (0.2-1.3); Blood Urea Nitrogen 12 mg/dL (7-17); Carbon Dioxide 26 mmol/L (22-32); Chloride 107 mmol/L (98-107); Cholesterol 144 mg/dL (140-199); Estimated Glomerular Filt Rate > 60 mL/min (>60); Globulin 2.6 g/dL (1.7-4.1); Glucose 98 mg/dL (70-100); HDL Cholesterol 46 mg/dL (40-60); HEMOLYSIS < 15 (0-50); LDL Cholesterol Calculated 79 mg/dL (<100); Potassium 4.3 mmol/L (3.4-5.1); Sodium 139 mmol/L (137-145); Total Protein 6.8 g/dL (6.3-8.2); Triglycerides 95 mg/dL (35-150)
[2024-04-24 09:41] LABS: TSH w/ Reflex to FT4 1.63 uIU/mL (0.47-4.68)
== END ==
PROVIDERS: Family Provider Family Medicine; PCP Family Medicine; Referring Provider Family Medicine; Visit Provider Family Medicine
DX: D64.9 Anemia, unspecified (principal); I10 Essential (primary) hypertension; I21.4 Non-ST elevation (NSTEMI) myocardial infarction
CPT/HCPCS: 36415; 80053; 80061; 84443; 85025

== ENCOUNTER 2024-06-25 07:29 | Day surgery (SDC) | payer BC, SELFPAY ==
--- NOTE | 2024-06-25 | PATH_ITS ---
[facility] Accession Number: [id number] No. of containers..01 Tissue . 01 Material submitted: . colon - ASCENDING COLON POLYP . 01 Diagnosis: ASCENDING COLON POLYP: Serrated polyp, cannot exclude the possibility of sessile serrated adenoma. [facility] 06/27/2024 1523 Local . 01 Electronically signed: . Micah Fergusno MD, Pathologist NPI- [id number] . 01 Gross description: . Received in formalin with two patient identifiers and ascending colon polyp, is a single tesfaye soft tissue fragment, 0.3 cm in greatest dimension. Submitted in A1. ([id number]) /MRV 06/27/2024 1523 Local . 01 Pathologist provided ICD-10: D12.2 . 01 CPT . 110505 Specimen Comment: A courtesy copy of this report has been sent to [phone] Performed at: [address] [id number] MD Micah Ferguson MD Phone: [phone]
[2024-06-25 08:03] VITALS: BP 103/72; PULSE 99; RESP 16; TEMP 36.2; O2SAT 99
[2024-06-25] MEDS: LACTATED RINGERS 1,000 ML 42 ML IV (08:04)
--- NOTE | 2024-06-25 08:07 | EKG_ITS ---
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
--- NOTE | 2024-06-25 08:13 | P.HP_ITS ---
History of Present Illness History of Present Illness Date Patient Seen: 06/25/24 Time Patient Seen: 08:14 Chief complaint: Colonoscopy Narrative: 43-year-old woman here for 1st time screening colonoscopy. Occasional right upper abdominal pain. No hematochezia or melena. No family history of colon cancer in first-degree relatives however grandfather had colon cancer. [facility] Medical History History of non-ST elevation myocardial infarction (NSTEMI) Stress Constipation Epigastric pain Belching Abdominal bloating GRIFFIN on CPAP Nocturnal hypoxemia Weight loss counseling, encounter for BMI 29.0-29.9,adult Atypical chest pain HTN (hypertension) Low blood pressure Excessive cerumen in left ear canal NSTEMI (non-ST elevated myocardial infarction) Memory loss, short term Peripheral polyneuropathy Screening for HPV (human papillomavirus) Cervical cancer screening Tension headache Somatic dysfunction of lower extremity Bilateral pes planus Vaccine reaction B12 deficiency due to diet Sacral region somatic dysfunction Pelvic somatic dysfunction Segmental and somatic dysfunction of abdomen and other regions Lumbar region somatic dysfunction Thoracic region somatic dysfunction Cervical somatic dysfunction Cranial somatic dysfunction Chronic bilateral low back pain without sciatica Chronic thoracic back pain Chronic neck pain Chronic back pain Migraines Friedman syndrome Benign breast lumps Fibroepithelioma Contact dermatitis Family history of autoimmune disorder PCOS (polycystic ovarian syndrome) Anxiety with limited-symptom attacks Situational mixed anxiety and depressive disorder Palpitations Bilateral foot pain Acne Depression Anxiety Chicken pox Bilateral breast cysts (2012) ADHD (attention deficit hyperactivity disorder), inattentive type Low back pain (09/2019) Oral contraception initial prescription Family History Mother Arthritis Glaucoma Cataracts, bilateral Hypertension Grandfather Cancer Grandmother Cancer Grandmother No problems noted. Father No problems noted. Social History marital status: household members: spouse and children Smoking Status: Never smoker second hand exposure: No alcohol intake: never substance use type: does not use Meds Home Medications and Allergies Home Medications Medication Instructions Recorded Confirmed Type cholecalciferol (vitamin D3) 10 10 mcg PO DAILY 01/12/21 06/06/24 History mcg (400 unit) capsule multivitamin 1 tab PO DAILY 01/12/21 06/06/24 History zbpdwtziwx-wmwzqvgpaxbkk-idjygrys 1 cap PO Q4-6H PRN pain #20 caps 09/03/21 06/06/24 Rx 50 mg-325 mg-40 mg capsule nitroglycerin 0.3 mg sublingual 0.3 mg sublingual Q5-15M PRN 11/30/22 06/06/24 History tablet cyanocobalamin (vitamin B-12) See Rx Instructions .Route 01/06/23 06/06/24 Rx 1,000 mcg/mL injection solution .COMPLEX #3 mL (Dodex) amlodipine 2.5 mg tablet 2.5 mg PO DAILY #90 tabs 05/10/23 06/25/24 Rx lorazepam 0.5 mg tablet 0.5 mg PO TID PRN anxiety #60 tabs 09/20/23 06/25/24 Rx nirmatrelvir 300 mg (150 mg See Rx Instructions PO .COMPLEX 04/17/24 06/06/24 Rx x2)-ritonavir 100 mg tablet,dose #30 ea pack (Paxlovid) peg 3350-sod sulf,hxxvi-bxx-ycq 1,000 ml PO .as directed #2,000 mL 05/21/24 06/06/24 Rx 178.7-7.3-0.5-1.12-0.9 gram oral soln (Suflave) Allergies Allergy/AdvReac Type Severity Reaction Status Date / Time Penicillins Allergy Intermediate systemic Verified 06/25/24 07:43 rash codeine AdvReac Mild bp drops Verified 06/25/24 07:43 Exam Vital Signs (past 8 hours): - 06/25/24 08:03 Temperature 97.2 F L Pulse Rate 99 H Respiratory Rate 16 Blood Pressure 103/72 Pulse Oximetry 99 Oxygen Delivery Method Room Air Oxygen Delivery Method Room Air Narrative Exam Narrative: General adult woman alert oriented no acute distress Chest nonlabored respiration Extremities warm well perfused Assessment & Plan Assessment & Plan narrative: The patient requires colorectal screening and colonoscopy is recommended. Technical details were discussed. Risks, benefits, alternatives explained. Risks including but not limited to myocardial infarction, aspiration, bleeding, pain, missed lesion, incomplete examination, need for further radiographic studies, intestinal injury, and need for major abdominal surgery were discussed. All questions were answered to their satisfaction, and they are in agreement with this plan. Time-Based Coding :: [TOTAL MINUTES] spent with patient and on the chart (including review of chart, obtaining history, exam, reviewing outside data, placing orders, documenting exam and treatment plan, and counseling patient) on [DATE].
[2024-06-25 08:52] VITALS: BP 107/60; PULSE 83; RESP 12; TEMP 36.3; O2SAT 96
[2024-06-25 08:57] VITALS: BP 101/64; PULSE 74; RESP 12; O2SAT 99
--- NOTE | 2024-06-25 08:58 | P.OP.COLON_ITS ---
Operative Date/Time/Diagnoses Date of procedure: 06/25/24 Time of procedure: 08:58 Pre-op diagnosis: Colorectal screening Post-op diagnosis: other (Colonic polyp x1) Procedure & Clinicians Study performed: Screening colonoscopy and polypectomy Same procedure as scheduled: Yes Indications: Screening Surgeon: Amadou Garcia Procedure Notes Procedure in detail: The history and physical was performed/updated and the patient is ASA class is 3. The procedure was discussed in detail with the patient. Potential risks complications including infection, bleeding, missed diagnosis, perforation, need for surgery, and were explained. Their questions were answered and informed consent was obtained. Patient was brought to the procedure room and placed standard monitoring equipment. The patient's vital signs were monitored continuously throughout the entire procedure. Prior to starting time-out was performed. The patient was placed in the left lateral recumbent position. Procedural sedation was administered by anesthesia. Examination began with a thorough inspection of the perianal area there was no evidence of fissures, fistulae, external hemorrhoids or cutaneous malignancy. The colonoscopy scope was then placed into the anal canal and was advanced to the cecum, which was identified by the ileocecal valve, the appendiceal orifice and the confluence of the taenia. The scope was then slowly withdrawn examining colon thoroughly in all directions, irrigating it of any residual stool. The scope was retroflexed within the rectum The patient tolerated the procedure well. They will be discharged once criteria are met. The prep was of good/excellent quality. The withdrawl time was 6 minutes. FINDINGS * Ascending colon 3 mm polyp removed with biopsy forceps likely hyperplastic. * Internal hemorrhoids Specimen(s): other (Ascending colon polyp) Impression: Colonic polyp x1 Post-procedure Plan for aftercare: Follow-up dependent on pathology findings. Disposition: same day surgery
[2024-06-25 09:02] VITALS: BP 109/72; PULSE 72; RESP 14; O2SAT 98
[2024-06-25 09:07] VITALS: BP 107/72; PULSE 72; RESP 14; O2SAT 99
== END 2024-06-25 09:23 | disposition home or self-care (01) ==
PROVIDERS: Family Provider Family Medicine; PCP Family Medicine; Referring Provider Surgery; Visit Provider Surgery
PROC: 0DJD8ZZ Inspection of Lower Intestinal Tract, Via Natural or Artificial Opening Endoscopic (ICD-10-PCS; CPT 45378; principal; 2024-06-25 08:15)
DX: Z12.11 Encounter for screening for malignant neoplasm of colon (principal); I25.2 Old myocardial infarction; I10 Essential (primary) hypertension; G47.33 Obstructive sleep apnea (adult) (pediatric); K64.8 Other hemorrhoids; D12.2 Benign neoplasm of ascending colon
CPT/HCPCS: 45380; 93005; J2704

== ENCOUNTER → 2024-11-28 11:27 | Outpatient (CLI) | payer BC, SELFPAY ==
[2024-11-28 13:01] LABS: BUN Creatinine Ratio 15.9 (6-22); Blood Urea Nitrogen 13 mg/dL (7-17); Estimated Glomerular Filt Rate > 60 mL/min (>60)
== END ==
LOC: LAB 11:28
PROVIDERS: Family Provider Family Medicine; PCP Family Medicine; Referring Provider Family Medicine; Visit Provider Family Medicine
DX: R10.11 Right upper quadrant pain (principal); K59.00 Constipation, unspecified; R10.13 Epigastric pain; I10 Essential (primary) hypertension
CPT/HCPCS: 36415; 82565; 84520

== ENCOUNTER → 2024-12-20 09:45 | Outpatient (CLI) | payer BC, SELFPAY ==
--- NOTE | 2024-12-20 09:46 | DI.CT.S_ITS ---
PROCEDURE: CT ABDOMEN PELVIS W CON INDICATIONS: chronic abdominal pain TECHNIQUE: After the administration of intravenous contrast, axial sections acquired from the lung bases to the pubic symphysis. Coronal and sagittal reformats were performed. For radiation dose reduction, the following was used: automated exposure control, adjustment of mA and/or kV according to patient size. COMPARISON: None. FINDINGS: Image quality: Diagnostic. Lower Chest: No significant findings. ABDOMEN: Liver: No solid mass. Liver measures 19.8 cm with steatosis. Gallbladder: No radiopaque gallstones or wall thickening. Biliary ducts: No biliary dilation. Pancreas: No ductal dilation. Spleen: Size is within normal limits. There is a 1.3 cm focus of low attenuation the posterior medial splenic tip Hounsfield units measuring 19. Adrenal Glands: No adrenal nodules. Kidneys and Ureters: No hydronephrosis. No solid mass. No complex renal cystic lesion which requires follow up. Stomach and Bowel: Normal colonic caliber, without significant wall thickening. Mild hiatal hernia. Prominent colonic stool. Diverticula are present without inflammatory change. Visualized appendix is normal. Peritoneum: No abnormal intraperitoneal fluid. No free air. Ventral Wall: No significant ventral hernia. Abdominal Nodes: No retroperitoneal or mesenteric adenopathy by size criteria. Vessels: Aorta and inferior vena cava are normal in size. PELVIS: Pelvic Organs: Mild scattered fluid is present within the right adnexa. Bladder: No bladder wall thickening, accounting for underdistention. Pelvic Nodes: No enlarged lymph nodes. Miscellaneous: No inguinal hernias are seen. Bones: No aggressive osseous abnormality. IMPRESSION: Prominent colonic stool without obstruction. Diverticulosis. Hepatomegaly with steatosis. Mild scattered fluid within the region of the right adnexa. Recent cyst rupture cannot be excluded. Dictated by: Blanca Shields M.D. on 12/20/2024 at 15:34 Approved by: Blanca Shields M.D. on 12/20/2024 at 15:36
== END ==
PROVIDERS: Family Provider Family Medicine; PCP Family Medicine; Referring Provider Family Medicine; Visit Provider Family Medicine
DX: K63.5 Polyp of colon (principal); R10.11 Right upper quadrant pain; K59.00 Constipation, unspecified; R14.0 Abdominal distension (gaseous); N94.6 Dysmenorrhea, unspecified; R10.2 Pelvic and perineal pain; K76.0 Fatty (change of) liver, not elsewhere classified; K44.9 Diaphragmatic hernia without obstruction or gangrene; K57.90 Diverticulosis of intestine, part unspecified, without perforation or abscess without bleeding
CPT/HCPCS: 74177; Q9967

== ENCOUNTER → 2025-01-14 12:48 | Outpatient (CLI) | payer BC, SELFPAY ==
[2025-01-14 13:58] LABS: Hemoglobin A1C% w Est Avg Glu 4.9 % (4.0-6.0)
[2025-01-14 14:02] LABS: Alanine Aminotransferase 16 IU/L (<35); Albumin 4.5 g/dL (3.5-5.0); Alkaline Phosphatase 43 U/L (38-126); Aspartate Aminotransferase 19 IU/L (14-36); Bilirubin Total 0.6 mg/dL (0.2-1.3); Bilirubin Unconjugated 0.4 mg/dL (0.0-1.1); Cholesterol 148 mg/dL (140-199); Globulin 2.3 g/dL (1.7-4.1); HDL Cholesterol 38 mg/dL (40-60); HEMOLYSIS < 15 (0-50); Iron 78 ug/dL (37-170); LDL Cholesterol Calculated 93 mg/dL (<100); Total Protein 6.8 g/dL (6.3-8.2); Triglycerides 84 mg/dL (35-150)
[2025-01-14 14:12] LABS: Percent Iron Saturation 23 % (15-50); Total Iron Binding Capacity 338 ug/dL (265-497); Transferrin 271 mg/dL (206-381)
[2025-01-14 14:37] LABS: Ferritin 9 ng/mL (6-137)
[2025-01-14 14:42] LABS: Hepatitis B Surface Antigen NEGATIVE s/c (NEGATIVE)
[2025-01-15 05:41] LABS: Hepatitis A Ab IgM Negative (Negative); Hepatitis A Ab Total Positive (Negative); Hepatitis B Surf AB Quant 14.9 mIU/mL (Immunity>10)
[2025-01-15 23:36] LABS: Hepatitis B Core Antibody Negative (Negative)
[2025-01-16 04:10] LABS: Alpha 1 Anti Trypsin 118 mg/dL (101-187)
[2025-01-17 19:07] LABS: Smooth Muscle Antibody 4 Units (0-19)
== END ==
PROVIDERS: Family Provider Family Medicine; PCP Family Medicine; Visit Provider Registered Nurse Medical-Surgical
DX: K76.0 Fatty (change of) liver, not elsewhere classified (principal)
CPT/HCPCS: 36415; 80061; 80076; 82103; 82728; 83036; 83540; 83550; 86015; 86704; 86706; 86708; 87340; 87522

== ENCOUNTER → 2025-01-27 09:26 | Outpatient (CLI) | payer BC, SELFPAY ==
--- NOTE | 2025-01-27 09:28 | DI.US.S_ITS ---
PROCEDURE: US ABDOMEN LIMITED INDICATIONS: hepatic steatosis TECHNIQUE: Real-time scanning was performed of the abdominal and retroperitoneal organs, with image documentation. COMPARISON: [facility], CT, CT ABDOMEN PELVIS W CON, 12/20/2024, 11:00. FINDINGS: Liver: Liver is minimally diffusely increased in echogenicity. No focal hepatic abnormalities identified. Normal hepatic size. Gallbladder: No gallstones. No wall thickening. No pericholecystic edema. Negative sonographic Parker's sign. Biliary ducts: Intrahepatic bile ducts are non-dilated. Extrahepatic bile duct caliber measures 3.8 mm. Normal is 6-7 mm or less in diameter, or 10 mm or less post-cholecystectomy. Pancreas: Visualized portions of the pancreas are sonographically normal. Miscellaneous: No free abdominal fluid. IMPRESSION: Minimally increased hepatic echogenicity likely related to hepatic steatosis; however other hepatocellular disease processes cannot be excluded and clinical correlation is recommended. Dictated by: Eulalio NICHOLS Interpreted: Blanca Shields MD on 01/27/2025 at 10:45 Transcribed by: EDWARD on 01/27/2025 at 10:46 Approved by: Blanca Shields M.D. on 01/28/2025 at 7:22
== END ==
PROVIDERS: Family Provider Family Medicine; PCP Family Medicine
DX: K76.0 Fatty (change of) liver, not elsewhere classified (principal)
CPT/HCPCS: 76705

== ENCOUNTER → 2025-02-20 14:45 | Outpatient (CLI) | payer BC, SELFPAY ==
--- NOTE | 2025-02-20 14:50 | DI.MG.S_ITS ---
MM screening mammo BI: 02/20/2025. BI-RADS: 2 CLINICAL: 44-year old female for bilateral screening mammogram. Tyrer-Cuzick lifetime risk of 9.7%. No personal or first-degree family history of breast cancer. The patient had a prior right breast biopsy. PRIOR EXAMS 02/16/2024, 03/19/2021, 09/25/2020, 09/22/2020. MAMMOGRAPHY TECHNIQUE: 2D and 3D (tomosynthesis) digital mammographic views obtained, with additional images as needed for full coverage. Current study was also evaluated with a Computer Aided Detection (CAD) system. DENSITY C. The breasts are heterogeneously dense, which may obscure small masses. MAMMOGRAPHY FINDINGS Right: Biopsy markers present on the right. There are no suspicious masses, calcifications, or other findings in the breast. Left: No suspicious mass, asymmetry, microcalcification, or other abnormality seen. IMPRESSION: Right * No evidence of malignancy with benign findings. Left * No evidence of malignancy. RECOMMENDATIONS Bilateral * Annual screening mammography. OVERALL ASSESSMENT CATEGORY BI-RADS-2: Benign. The [employer] recommends annual screening mammography beginning at age 40 for women with average risk of breast cancer. ELECTRONICALLY SIGNED: Vini Lemus M.D. on 02/20/2025 at 04:07:48 PM PT Interpreting Station ID: [id number]
== END ==
PROVIDERS: Family Provider Family Medicine; PCP Family Medicine; Referring Provider Family Medicine; Visit Provider Family Medicine
DX: Z12.31 Encounter for screening mammogram for malignant neoplasm of breast (principal); R92.333 Mammographic heterogeneous density, bilateral breasts
CPT/HCPCS: 77063; 77067